=== PATIENT | male | born 1930 | race Caucasian/White ===

== ENCOUNTER 2018-05-29 17:36 | Observation (INO) ==
[2018-05-29] MEDS ORDERED: Sod Chloride 0.9% Inj 1,000 ML IV.SIG ONE (18:09)
--- NOTE | 2018-05-29 18:22 | ED ---
HPI General Chief Complaint: Syncope Stated Complaint: Syncope Time Seen by Provider: 05/29/18 17:57 Source: patient and family Mode of arrival: EMS Limitations: no limitations History of Present Illness HPI narrative: Patient is a 87 year old male who presents to the ER after he had a syncopal episode. Patient reports that he has not been feeling well all day today, reports that he was laying in bed. Patient reports that he got up to use the bathroom and ended up feeling like a bolt of a light go throughout his body - reports that he felt nauseous, threw up and then he syncopized. Patient reports that he fell onto the floor hitting his head. Patient's family witnessed this fall, he was unconscious for about 5-10 seconds. Patient reports that he feels fine at this time, patient reports no complaints. Patient does take a full dose aspirin every day. Patient reports that he does have cardiac history, he has had multiple cardiac stents. Patient reports that he does follow up with Dr. Chaudhry in the office and is scheduled for a cardiac catherization on June 05. Patient reports that he feels fine but feels like something is off. Patient with no chest pain or headache or dizziness at this time. Related Data Home Medications Medication Instructions Recorded Confirmed aspirin 81 mg PO DAILY [facility] 05/29/18 05/29/18 donepezil 10 mg PO DAILY 05/29/18 05/29/18 enalapril maleate 5 mg PO DAILY [facility] 05/29/18 05/29/18 glipizide 10 mg PO DAILY 05/29/18 05/29/18 metoprolol succinate 50 mg PO DAILY 05/29/18 05/29/18 omeprazole 20 mg PO DAILY [facility] 05/29/18 05/29/18 Allergies Allergy/AdvReac Type Severity Reaction Status Date / Time No Known Allergies Allergy Severe Uncoded 05/13/16 13:38 Review of Systems ROS: all other systems reviewed are negative [facility] Medical History Medical History Diabetes (Acute) Surgical History Surgical History H/O heart artery stent (Acute) Social History Social History Substance History: No History of Abuse Second Hand Smoke Exposure: No Smoking Status: Never smoker Tobacco Type: Cigarettes How Often Do You Have a Drink Containing Alcohol: Never Recent Travel in [facility] within the Last 8 Weeks: No Recent Out of Country Travel within the Last 8 Weeks: No Immunization History Tetanus Immunization: Unsure Exam Narrative Exam Narrative: GENERAL: mild distress SKIN: Focused skin assessment warm/dry. HEAD: Normocephalic. Patient with right sided periorbital hematoma EYES: Pupils equal and round. No scleral icterus. No injection or drainage. ENT: No nasal bleeding or discharge. Mucous membranes pink and moist. NECK: Trachea midline. No JVD. CARDIOVASCULAR: Regular rate and rhythm. No murmur appreciated. RESPIRATORY: No accessory muscle use. Clear to auscultation. Breath sounds equal bilaterally. GASTROINTESTINAL: Abdomen soft, non-tender, nondistended. Hepatic and splenic margins not palpable. MUSCULOSKELETAL: No obvious deformities. No clubbing. No cyanosis. No edema. NEUROLOGICAL: Awake and alert. No obvious cranial nerve deficits. Motor grossly within normal limits. Normal speech. PSYCHIATRIC: Appropriate mood and affect; insight and judgment normal. Course Initial Documented Vital Signs Temperature 98.8 F 05/29/18 17:57 Pulse Rate 67 05/29/18 17:57 Respiratory Rate 18 05/29/18 17:57 Blood Pressure 160/77 H 05/29/18 17:57 Pulse Oximetry 95 05/29/18 17:57 Last Documented Vital Signs Temperature 98.3 F 05/31/18 04:00 Pulse Rate 69 05/31/18 04:00 Respiratory Rate 20 05/31/18 04:00 Blood Pressure 158/84 H 05/31/18 04:00 Pulse Oximetry 95 05/31/18 04:00 Medical Decision Making [facility] Narrative Medical decision making narrative: During the course of the patients emergency department visit, the patients history, examination, and differential diagnosis were reviewed with the patient. The patient was placed on a supervisor home economics with oximetry and frequent blood pressure monitoring. The patient had an IV access obtained and blood work sent for analysis. The patient was initially provided asa cbc: wnl cmp: Sodium 140, potassium 4.5, BUN 14, creatinine 1.28, glucose 172 Troponin less than 0.02, BNP 401 CT of the head with no acute intracranial abnormalities, CT of the face with no acute facial bone fractures. Patient will be observation for syncope workup. Case was reviewed with Dr. Zimmer who accepts patient to service. Medical Screen Exam Complete: Yes Emergency Medical Condition: Yes Differential Diagnosis Differential Diagnosis: ACS, arrhythmia, electrolyte abnormality, intracranial hemorrhage, TIA, CVA Medical Records Medical records reviewed: Yes I reviewed the patient's medical records. Lab Data Lab results reviewed: Yes I reviewed the patient's lab results. Result diagrams: 05/30/18 05:27 05/30/18 05:27 Lab Results 05/29/18 05/29/18 05/29/18 Range/Units 18:14 18:14 18:14 WBC 7.2 (4.0-11.0) th/mm3 RBC 4.35 L (4.50-5.90) mil/mm3 Hgb 13.6 (13.0-17.0) gm/dL Hct 38.1 L (39.0-51.0) % MCV 87.6 (80.0-100.0) fL MCH 31.4 (27.0-34.0) pg MCHC 35.8 (32.0-36.0) % RDW 15.2 (11.6-17.2) % Plt Count 174 (150-450) th/mm3 MPV 7.9 (7.0-11.0) fL Prelim Diff (Auto) Neut % (Auto) 73.9 H (16.0-70.0) % Lymph % (Auto) 17.1 (9.0-44.0) % Gaines % (Auto) 5.3 (0.0-8.0) % Eos % (Auto) 3.1 (0.0-4.0) % Baso % (Auto) 0.6 (0.0-2.0) % Neut # (Auto) 5.3 (1.8-7.7) th/mm3 Lymph # (Auto) 1.2 (1.0-4.8) th/mm3 Gaines # (Auto) 0.4 (0.0-0.9) th/mm3 Eos # (Auto) 0.2 (0.0-0.4) th/mm3 Baso # (Auto) 0.0 (0.0-0.2) th/mm3 WBC Differential . Diff Scan Differential Comment Auto diff final PT 11.3 (9.8-11.6) sec INR 1.1 Ratio APTT 28.9 (23.4-31.7) sec Sodium 140 (136-145) meq/L Potassium 4.5 (3.5-5.1) meq/L Chloride 107 (98-107) meq/L Carbon Dioxide 26.6 (21.0-32.0) meq/L Anion Gap 6 (5-15) meq/L BUN 14 (7-18) mg/dL Creatinine 1.28 (0.60-1.30) mg/dL Estimated GFR 53 L (>89) mL/min POC Glucose (68-110) mg/dl Random Glucose 172 H (74-106) mg/dL Calcium 8.6 (8.5-10.1) mg/dL Magnesium 1.6 (1.5-2.5) mg/dL Total Bilirubin 0.7 (0.2-1.0) mg/dL AST 23 (15-37) U/L ALT 22 (12-78) U/L Alkaline Phosphatase 65 (45-117) U/L Troponin I Less than 0.02 L (0.02-0.05) ng/mL B-Natriuretic Peptide (0-100) pg/mL Total Protein 6.6 (6.4-8.2) g/dL Albumin 3.5 (3.4-5.0) g/dL 05/29/18 05/29/18 05/30/18 Range/Units 18:14 19:55 00:47 WBC (4.0-11.0) th/mm3 RBC (4.50-5.90) mil/mm3 Hgb (13.0-17.0) gm/dL Hct (39.0-51.0) % MCV (80.0-100.0) fL MCH (27.0-34.0) pg MCHC (32.0-36.0) % RDW (11.6-17.2) % Plt Count (150-450) th/mm3 MPV (7.0-11.0) fL Prelim Diff (Auto) Neut % (Auto) (16.0-70.0) % Lymph % (Auto) (9.0-44.0) % Gaines % (Auto) (0.0-8.0) % Eos % (Auto) (0.0-4.0) % Baso % (Auto) (0.0-2.0) % Neut # (Auto) (1.8-7.7) th/mm3 Lymph # (Auto) (1.0-4.8) th/mm3 Gaines # (Auto) (0.0-0.9) th/mm3 Eos # (Auto) (0.0-0.4) th/mm3 Baso # (Auto) (0.0-0.2) th/mm3 WBC Differential Diff Scan Differential Comment PT (9.8-11.6) sec INR Ratio APTT (23.4-31.7) sec Sodium (136-145) meq/L Potassium (3.5-5.1) meq/L Chloride (98-107) meq/L Carbon Dioxide (21.0-32.0) meq/L Anion Gap (5-15) meq/L BUN (7-18) mg/dL Creatinine (0.60-1.30) mg/dL Estimated GFR (>89) mL/min POC Glucose 132 H (68-110) mg/dl Random Glucose (74-106) mg/dL Calcium (8.5-10.1) mg/dL Magnesium (1.5-2.5) mg/dL Total Bilirubin (0.2-1.0) mg/dL AST (15-37) U/L ALT (12-78) U/L Alkaline Phosphatase (45-117) U/L Troponin I 0.03 (0.02-0.05) ng/mL B-Natriuretic Peptide 401 H (0-100) pg/mL Total Protein (6.4-8.2) g/dL Albumin (3.4-5.0) g/dL 05/30/18 05/30/18 05/30/18 Range/Units 05:27 05:27 08:37 WBC 5.6 (4.0-11.0) th/mm3 RBC 3.87 L (4.50-5.90) mil/mm3 Hgb 12.2 L (13.0-17.0) gm/dL Hct 33.8 L (39.0-51.0) % MCV 87.3 (80.0-100.0) fL MCH 31.5 (27.0-34.0) pg MCHC 36.1 H (32.0-36.0) % RDW 15.2 (11.6-17.2) % Plt Count 143 L (150-450) th/mm3 MPV 7.6 (7.0-11.0) fL Prelim Diff (Auto) Slide review pending Neut % (Auto) 61.8 (16.0-70.0) % Lymph % (Auto) 25.0 (9.0-44.0) % Gaines % (Auto) 7.9 (0.0-8.0) % Eos % (Auto) 4.5 H (0.0-4.0) % Baso % (Auto) 0.8 (0.0-2.0) % Neut # (Auto) 3.5 (1.8-7.7) th/mm3 Lymph # (Auto) 1.4 (1.0-4.8) th/mm3 Gaines # (Auto) 0.4 (0.0-0.9) th/mm3 Eos # (Auto) 0.3 (0.0-0.4) th/mm3 Baso # (Auto) 0.0 (0.0-0.2) th/mm3 WBC Differential . Diff Scan Auto diff confirmed Differential Comment . PT (9.8-11.6) sec INR Ratio APTT (23.4-31.7) sec Sodium 146 H (136-145) meq/L Potassium 3.7 D (3.5-5.1) meq/L Chloride 113 H (98-107) meq/L Carbon Dioxide 27.1 (21.0-32.0) meq/L Anion Gap 6 (5-15) meq/L BUN 12 (7-18) mg/dL Creatinine 1.07 (0.60-1.30) mg/dL Estimated GFR 65 L (>89) mL/min POC Glucose 116 H (68-110) mg/dl Random Glucose 91 (74-106) mg/dL Calcium 7.8 L D (8.5-10.1) mg/dL Magnesium (1.5-2.5) mg/dL Total Bilirubin 0.6 (0.2-1.0) mg/dL AST 25 (15-37) U/L ALT 18 (12-78) U/L Alkaline Phosphatase 48 (45-117) U/L Troponin I 0.02 (0.02-0.05) ng/mL B-Natriuretic Peptide (0-100) pg/mL Total Protein 5.4 L D (6.4-8.2) g/dL Albumin 2.8 L D (3.4-5.0) g/dL 05/30/18 05/30/18 05/30/18 Range/Units 11:12 13:08 17:40 WBC (4.0-11.0) th/mm3 RBC (4.50-5.90) mil/mm3 Hgb (13.0-17.0) gm/dL Hct (39.0-51.0) % MCV (80.0-100.0) fL MCH (27.0-34.0) pg MCHC (32.0-36.0) % RDW (11.6-17.2) % Plt Count (150-450) th/mm3 MPV (7.0-11.0) fL Prelim Diff (Auto) Neut % (Auto) (16.0-70.0) % Lymph % (Auto) (9.0-44.0) % Gaines % (Auto) (0.0-8.0) % Eos % (Auto) (0.0-4.0) % Baso % (Auto) (0.0-2.0) % Neut # (Auto) (1.8-7.7) th/mm3 Lymph # (Auto) (1.0-4.8) th/mm3 Gaines # (Auto) (0.0-0.9) th/mm3 Eos # (Auto) (0.0-0.4) th/mm3 Baso # (Auto) (0.0-0.2) th/mm3 WBC Differential Diff Scan Differential Comment PT (9.8-11.6) sec INR Ratio APTT (23.4-31.7) sec Sodium (136-145) meq/L Potassium (3.5-5.1) meq/L Chloride (98-107) meq/L Carbon Dioxide (21.0-32.0) meq/L Anion Gap (5-15) meq/L BUN (7-18) mg/dL Creatinine (0.60-1.30) mg/dL Estimated GFR (>89) mL/min POC Glucose 181 H 178 H 134 H (68-110) mg/dl Random Glucose (74-106) mg/dL Calcium (8.5-10.1) mg/dL Magnesium (1.5-2.5) mg/dL Total Bilirubin (0.2-1.0) mg/dL AST (15-37) U/L ALT (12-78) U/L Alkaline Phosphatase (45-117) U/L Troponin I (0.02-0.05) ng/mL B-Natriuretic Peptide (0-100) pg/mL Total Protein (6.4-8.2) g/dL Albumin (3.4-5.0) g/dL 05/30/18 Range/Units 20:38 WBC (4.0-11.0) th/mm3 RBC (4.50-5.90) mil/mm3 Hgb (13.0-17.0) gm/dL Hct (39.0-51.0) % MCV (80.0-100.0) fL MCH (27.0-34.0) pg MCHC (32.0-36.0) % RDW (11.6-17.2) % Plt Count (150-450) th/mm3 MPV (7.0-11.0) fL Prelim Diff (Auto) Neut % (Auto) (16.0-70.0) % Lymph % (Auto) (9.0-44.0) % Gaines % (Auto) (0.0-8.0) % Eos % (Auto) (0.0-4.0) % Baso % (Auto) (0.0-2.0) % Neut # (Auto) (1.8-7.7) th/mm3 Lymph # (Auto) (1.0-4.8) th/mm3 Gaines # (Auto) (0.0-0.9) th/mm3 Eos # (Auto) (0.0-0.4) th/mm3 Baso # (Auto) (0.0-0.2) th/mm3 WBC Differential Diff Scan Differential Comment PT (9.8-11.6) sec INR Ratio APTT (23.4-31.7) sec Sodium (136-145) meq/L Potassium (3.5-5.1) meq/L Chloride (98-107) meq/L Carbon Dioxide (21.0-32.0) meq/L Anion Gap (5-15) meq/L BUN (7-18) mg/dL Creatinine (0.60-1.30) mg/dL Estimated GFR (>89) mL/min POC Glucose 134 H (68-110) mg/dl Random Glucose (74-106) mg/dL Calcium (8.5-10.1) mg/dL Magnesium (1.5-2.5) mg/dL Total Bilirubin (0.2-1.0) mg/dL AST (15-37) U/L ALT (12-78) U/L Alkaline Phosphatase (45-117) U/L Troponin I (0.02-0.05) ng/mL B-Natriuretic Peptide (0-100) pg/mL Total Protein (6.4-8.2) g/dL Albumin (3.4-5.0) g/dL Imaging Data Attestation: I personally reviewed and interpreted this imaging study as follows : Radiologist's impression: Cervical Spine CT 05/29/18 18:09 CONCLUSION: 1. No acute fracture or subluxation of the cervical spine. 2. Degenerative changes as above. Chest X-Ray 05/29/18 18:09 CONCLUSION: 1. Cardiomegaly. 2. Bibasilar patchiness consistent with atelectasis and/or infiltrates. Face CT 05/29/18 18:09 CONCLUSION: 1. No acute facial bone fractures. Head CT 05/29/18 18:09 CONCLUSION: 1. No acute intracranial abnormality. . ECG Data EKG Prior to Arrival: No Attestation: I personally reviewed and interpreted this ECG as follows: Interpretation: EKG at 1806 shows normal sinus rhythm at 62 bpm, patient with a first-degree AV block. Patient with ST segment depressions in lead I, aVL, V4 to V6, these are changes when compared to EKG from October 26, 2010. Discharge Plan Discharge Disposition Patient Disposition: ED Admit(ED Internal Use Only) Discharge Condition Condition: Fair Discharge Order Discharge Orders: ED Use Only Admit Order (Routine); Ordered 05/29/18 Ordered By: Dominique Harkins Discharge Details Diagnosis: Syncope and collapse Physicians Team ED Provider: Dominique Harkins Primary Care Provider: Zenobia Todd Attending Provider: Marilee Dill Other Providers: Con Rios ; [employer] Status ED Status: Left Department Discharge Information Discharge Date/Time: 05/29/18 22:03
[2018-05-29 18:40] LABS: Baso % (Auto) 0.6 % (0.0-2.0); Eos # (Auto) 0.2 th/mm3 (0.0-0.4); Eos % (Auto) 3.1 % (0.0-4.0); Hematocrit 38.1 % (39.0-51.0); Hemoglobin 13.6 gm/dL (13.0-17.0); Lymph # (Auto) 1.2 th/mm3 (1.0-4.8); Lymph % (Auto) 17.1 % (9.0-44.0); Mean Corpuscular HGB Conc 35.8 % (32.0-36.0); Mean Corpuscular Hemoglobin 31.4 pg (27.0-34.0); Mean Corpuscular Volume 87.6 fL (80.0-100.0); Mean Platelet Volume 7.9 fL (7.0-11.0); Mono # (Auto) 0.4 th/mm3 (0.0-0.9); Mono % (Auto) 5.3 % (0.0-8.0); Neut # (Auto) 5.3 th/mm3 (1.8-7.7); Neut % (Auto) 73.9 % (16.0-70.0); Platelet Count 174 th/mm3 (150-450); Red Blood Count 4.35 mil/mm3 (4.50-5.90); Red Cell Distribution Width 15.2 % (11.6-17.2); White Blood Count 7.2 th/mm3 (4.0-11.0)
--- NOTE | 2018-05-29 18:47 | XR ---
EXAM DATE: 05/29/2018 6:44 PM EST AGE/SEX: 87 years / Male INDICATIONS: Chest pain. CLINICAL DATA: This is the patient's initial encounter. Patient reports that signs and symptoms have been present for 1 day and indicates a pain score of 0/10. MEDICAL/SURGICAL HISTORY: None. . Bilateral total shoulder replacements. COMPARISON: [facility], XR CHEST PA AND LAT, 04/05/2016. . FINDINGS: The heart is enlarged. Bibasilar patchiness is noted consistent with atelectasis and/or infiltrates. Median sternotomy wires are again noted and stable. Bilateral shoulder replacements are noted. CONCLUSION: 1. Cardiomegaly. 2. Bibasilar patchiness consistent with atelectasis and/or infiltrates. Electronically signed by: Dago Villeda MD Board Certified Radiologist 05/29/2018 6:46 PM EST
--- NOTE | 2018-05-29 18:49 | CT ---
EXAM DATE: 05/29/2018 6:45 PM EST AGE/SEX: 87 years / Male INDICATIONS: Syncopal episode. Loss of consciousness. CLINICAL DATA: This is the patient's initial encounter. Patient reports that signs and symptoms have been present for 1 day and indicates a pain score of 0/10. MEDICAL/SURGICAL HISTORY: Diabetes. . Coronary artery stent. RADIATION DOSE: 36.83 CTDI (mGy) COMPARISON: No prior exams available for comparison. TECHNIQUE: CT of the head without contrast. Using automated exposure control and adjustment of the mA and/or kV according to patient size, radiation dose was kept as low as reasonably achievable to ob tain optimal diagnostic quality images. DICOM format image data is available electronically for revi ew and comparison. FINDINGS: Cerebrum: Moderate diffuse cerebral atrophy. The ventricles are normal for degree of atrophy. No inez dence of midline shift, mass lesion, hemorrhage or acute infarction. No extraaxial fluid collections are seen. Posterior Fossa: The cerebellum and brainstem are intact. The 4th ventricle is midline. The cerebe llopontine angle is unremarkable. Extracranial: The visualized portion of the orbits is intact. Skull: The calvaria is intact. No evidence of skull fracture. CONCLUSION: 1. No acute intracranial abnormality. . Electronically signed by: Connor Martin MD Board Certified Radiologist 05/29/2018 6:47 PM VERONICA Jacobs
[2018-05-29 18:51] LABS: Alanine Aminotransferase 22 U/L (12-78); Albumin 3.5 g/dL (3.4-5.0); Anion Gap 6 meq/L (5-15); Aspartate Aminotransferase 23 U/L (15-37); Blood Urea Nitrogen 14 mg/dL (7-18); Calcium 8.6 mg/dL (8.5-10.1); Carbon Dioxide 26.6 meq/L (21.0-32.0); Chloride 107 meq/L (98-107); Glomerular Filtration Rate 53 mL/min (>89); Glucose,Random 172 mg/dL (74-106); Magnesium 1.6 mg/dL (1.5-2.5); Potassium 4.5 meq/L (3.5-5.1); Sodium 140 meq/L (136-145)
[2018-05-29 18:54] LABS: Activated Partial Thrombo Time 28.9 sec (23.4-31.7); INR 1.1 Ratio; Prothrombin Time 11.3 sec (9.8-11.6)
[2018-05-29 18:55] LABS: Alkaline Phosphatase 65 U/L (45-117); Total Protein 6.6 g/dL (6.4-8.2)
--- NOTE | 2018-05-29 18:59 | CT ---
EXAM DATE: 05/29/2018 6:54 PM EST AGE/SEX: 87 years / Male INDICATIONS: Syncopal episode. Head, neck, and face injury. Swollen right eye. CLINICAL DATA: This is the patient's initial encounter. Patient reports that signs and symptoms have been present for 1 day and indicates a pain score of 0/10. MEDICAL/SURGICAL HISTORY: Diabetes. . Coronary artery stent. RADIATION DOSE: 62.55 CTDI (mGy) COMPARISON: No prior exams available for comparison. TECHNIQUE: Contiguous images in the axial and coronal planes were obtained using helical multirow de tector technique. Using automated exposure control and adjustment of the mA and/or kV according to p atient size, radiation dose was kept as low as reasonably achievable to obtain optimal diagnostic amy lity images. DICOM format image data is available electronically for review and comparison. FINDINGS: Orbits: The orbital and infraorbital osseous structures are intact. The retroconal structures have a normal configuration. No radiopaque foreign bodies are seen. Nasal Bone: The nasal bone and maxillary spine are intact. Zygomatic Arches: Symmetric without evidence of fracture. Sinuses: The maxillary, ethmoid, and frontal sinuses are intact. No air-fluid levels seen. Nasal Cavity: The nasal septum is intact and midline. The lacrimal ducts are intact. Soft Tissues: No radiopaque foreign bodies seen. Right periorbital soft tissue swelling. Intracranial: No intracranial air seen. Cribriform Plate: Grossly intact. CONCLUSION: 1. No acute facial bone fractures. Electronically signed by: Connor Martin MD Board Certified Radiologist 05/29/2018 6:58 PM VERONICA Jacobs
--- NOTE | 2018-05-29 19:08 | CT ---
EXAM DATE: 05/29/2018 7:02 PM EST AGE/SEX: 87 years / Male INDICATIONS: Syncopal episode. Fall. Head and neck injury. CLINICAL DATA: This is the patient's initial encounter. Patient reports that signs and symptoms have been present for 1 day and indicates a pain score of 0/10. MEDICAL/SURGICAL HISTORY: Diabetes. . Coronary artery stent. RADIATION DOSE: 23.03 CTDI (mGy) COMPARISON: No prior exams available for comparison. TECHNIQUE: Contiguous axial images were obtained using helical multirow detector technique. The vol umetric data was post-processed with multiplanar reconstruction in oblique axial, sagittal, and coron al planes. Using automated exposure control and adjustment of the mA and/or kV according to patient s ize, radiation dose was kept as low as reasonably achievable to obtain optimal diagnostic quality brittany ges. DICOM format image data is available electronically for review and comparison. FINDINGS: No subluxation seen of the cervical spine. No cortical break or trabecular disruption demonstrated. V ertebral bodies have normal height. 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 There is severe left foraminal stenosis and mild spinal stenosis. Small, broad posterior disc osteophyte complexes and bilateral uncovertebral and facet osteoarthritis seen at C4/C5 and C5/C6. There is mild bilateral foraminal stenosis at C4/5 and moderate bilateral f oraminal stenosis at C5/C6. Broad right paracentral/foraminal disc protrusion and mild bilateral uncovertebral and facet osteoart hritis present at C6/C7. There is moderate right foraminal stenosis. CONCLUSION: 1. No acute fracture or subluxation of the cervical spine. 2. Degenerative changes as above. Electronically signed by: Connor Sanford MD Board Certified Radiologist 05/29/2018 7:06 PM EST
[2018-05-29] MEDS ORDERED: Dextrose 50% in Water 50 ML Vial IV.PUSH PRN (19:45)
[2018-05-29] MEDS ORDERED: Bisacodyl 10 MG Supp RECTAL PRN (19:45)
[2018-05-29] MEDS ORDERED: Acetaminophen 325 MG Tablet PO PRN (19:45)
[2018-05-29] MEDS: Sod Chloride 0.9% Inj 1,000 ML IV.CONT SCH (19:53)
[2018-05-29] MEDS ORDERED: Aspirin 325 MG Tablet PO ONE (20:10)
--- NOTE | 2018-05-29 20:35 | P.HPIM ---
History of Present Illness Primary Care Physician: Zenobia Todd MD History of Present Illness: CXR bibasilar patchiness consistent with atelectasis or infiltrates.This is an 87-year-old male with a PMH of HTN, CAD s/ p CABG x6 and DM who was brought to the ER by EMS after syncopal event. Pt states he's been having c/o chest pain for approx 1mo, follows w/ Dr. Chaudhry, was seen in office on Friday and scheduled for Cath on 06/05/18. Notes ongoing episodes of chest pain, substernal, 5/10, non-radiating. Today, w/ c/o nausea/ vomiting and "gas", states symptoms improved after vomiting. and daughter note decreased PO intake x1 month. Today, states he was walking back to the living room from the kitchen when she heard loud thud and found him on the floor. Pt denies dizziness/lightheadedness or chest pain prior to syncope. + facial trauma. On arrival, BP 160/77, HR 67, O2 sat 95% on RA, Afebrile. CBC unremarkable. INR 1.1. Chemistry unremarkable. Troponin negative. CT Head negative. CT Face no fractures. CT C-spine no acute fracture. Remains chest pain free at this time. Diagnosis (1) Syncope: (2) Fall: (3) DM (diabetes mellitus): (4) Chest pain: Review of Systems PAST FAMILY HISTORY: Reviewed. No h/o DM or CAD Review of Systems: all other systems reviewed are negative [facility] Medical History Medical History Diabetes (Acute) Surgical History Surgical History H/O heart artery stent (Acute) Social History Social History Substance History: No History of Abuse Second Hand Smoke Exposure: No Smoking Status: Never smoker Tobacco Type: Cigarettes How Often Do You Have a Drink Containing Alcohol: Monthly or less Recent Travel in [facility] within the Last 8 Weeks: No Recent Out of Country Travel within the Last 8 Weeks: No Immunization History Tetanus Immunization: Unsure Medications and Allergies Allergies Allergy/AdvReac Type Severity Reaction Status Date / Time No Known Allergies Allergy Severe Uncoded 05/13/16 13:38 Home Medications Medication Instructions Recorded Confirmed Type aspirin 81 mg PO DAILY [facility] 05/29/18 05/29/18 History donepezil 10 mg PO DAILY 05/29/18 05/29/18 History enalapril maleate 5 mg PO DAILY [facility] 05/29/18 05/29/18 History glipizide 10 mg PO DAILY 05/29/18 05/29/18 History metoprolol succinate 50 mg PO DAILY 05/29/18 05/29/18 History omeprazole 20 mg PO DAILY [facility] 05/29/18 05/29/18 History Active Medications: Active Medications Acetaminophen (Tylenol) 650 mg PO Q4H PRN PRN Reason: Temp > 100.4 Al Hydroxide/Mg Hydroxide (Milk Of Magnesia Liq) 30 ml PO Q12H PRN PRN Reason: Mild Constipation Aspirin (Aspirin Chew) 81 mg PO DAILY [facility] Bisacodyl (Dulcolax Supp) 10 mg RECTAL DAILY PRN PRN Reason: SEVERE CONSITIPATION Dextrose (D50w Vial) 50 ml IV.PUSH UNSCH PRN PRN Reason: PER HYPOGLYCEMIA PROTOCOL Enalapril Maleate (Vasotec) 5 mg PO DAILY [facility] Glucagon (Glucagon Inj) 1 mg OTHER PRN PRN PRN Reason: for Hypoglycemia Protocol Sodium Chloride (Ns Inj) 1,000 mls @ 100 mls/hr IV.CONT .Q10H [facility] Last Admin: 05/29/18 19:53 Dose: 100 mls/hr Insulin Aspart (Novolog Insulin Correctional Sugar Inj) 0 unit SQ ACHS [facility]; Protocol Lactulose (Lactulose Liq) 30 ml PO DAILY PRN PRN Reason: SEVERE CONSITIPATION Non-Formulary Medication (Donepezil [Donepezil]) 10 mg PO DAILY [facility] Non-Formulary Medication (Metoprolol Succinate [Metoprolol Succinate]) 50 mg PO DAILY [facility] Non-Formulary Medication (Omeprazole [Omeprazole]) 20 mg PO DAILY [facility] Ondansetron HCl (Zofran Inj) 4 mg IV.PUSH Q6H PRN PRN Reason: NAUSEA OR VOMITING Senna/Docusate Sodium (Chelita-Colace) 1 tab PO BID [facility] Sennosides (Senokot) 17.2 mg PO Q12H PRN PRN Reason: Moderate Constipation Sodium Chloride (Ns Flush) 2 ml IV.FLUSH PRN PRN PRN Reason: FLUSH AFTER USING IV ACCESS Sodium Chloride (Ns Flush) 2 ml IV.FLUSH BID [facility] Sodium Chloride (Ns Flush) 2 ml IV.FLUSH PRN PRN PRN Reason: FLUSH AFTER USING IV ACCESS Physical Exam Vital signs: Last Vital Signs Temp 98.8 F 05/29/18 17:57 Pulse 63 05/29/18 19:03 Resp 18 05/29/18 19:03 BP 162/72 H 05/29/18 19:03 Pulse Ox 98 05/29/18 19:28 Intake & Output 05/27/18 05/28/18 05/29/18 05/30/18 06:59 06:59 06:59 06:59 Intake Total 1000 / 1000 Balance 1000 / 1000 Weight 90.718 kg Narrative: PE: GENERAL: Very pleasant elderly male in no acute distress. SKIN: Focused skin assessment warm and dry. HEENT: PERRLA, EOMI. No scleral icterus or conjunctival pallor. No lid lag or facial droop. +right eye ecchymosis/mild swelling. CARDIOVASCULAR: Regular rate and rhythm. No obvious murmurs to auscultation. No chest tenderness to palpation. RESPIRATORY: No obvious rhonchi or wheezing. Clear to auscultation. Breath sounds equal bilaterally. GASTROINTESTINAL: Abdomen soft, non-tender, nondistended. BS normal. MUSCULOSKELETAL: Extremities without clubbing, cyanosis, or edema. No obvious deformities. NEUROLOGICAL: Awake, alert and oriented x4. No focal neurologic deficits. Moving both upper and lower extremities spontaneously. PSYCHIATRIC: Appropriate mood and affect. Insight and judgment normal. Results Labs CBC & Chem 7: 05/29/18 18:14 05/29/18 18:14 Imaging Impressions Cervical Spine CT 05/29/18 18:09 CONCLUSION: 1. No acute fracture or subluxation of the cervical spine. 2. Degenerative changes as above. Chest X-Ray 05/29/18 18:09 CONCLUSION: 1. Cardiomegaly. 2. Bibasilar patchiness consistent with atelectasis and/or infiltrates. Face CT 05/29/18 18:09 CONCLUSION: 1. No acute facial bone fractures. Head CT 05/29/18 18:09 CONCLUSION: 1. No acute intracranial abnormality. . Caprini VTE Risk Assessment Caprini VTE Risk Assessment: No/Low Risk (score <= 1) Caprini Risk Assessment Model: Point Value = 1 Point Value = 2 Point Value = 3 Point Value = 5 Age 41-60 Minor surgery BMI > 25 kg/m2 Swollen legs Varicose veins or History of unexplained or recurrent spontaneous Oral contraceptives or hormone replacement Sepsis (< 1 month) Serious lung disease, including pneumonia (< 1 month) Abnormal pulmonary function Acute myocardial infarction Congestive heart failure (< 1 month) History of inflammatory bowel disease Medical patient at bed rest Age 61-74 Arthroscopic surgery Major open surgery (> 45 min) Laparoscopic surgery (> 45 min) Malignancy Confined to bed (> 72 hours) Immobilizing plaster cast Central venous access Age >= 75 History of VTE Family history of VTE Factor V Leiden Prothrombin [id number] Lupus anticoagulant Anticardiolipin antibodies Elevated serum homocysteine Heparin-induced thrombocytopenia Other congenital or acquired thrombophilia Stroke (< 1 month) Elective arthroplasty Hip, pelvis, or leg fracture Acute spinal cord injury (< 1 month) Prophylaxis Regimen: Total Risk Factor Score Risk Level Prophylaxis Regimen 0-1 Low Early ambulation 2 Moderate Order ONE of the following: *Sequential Compression Device (SCD) *Heparin 5000 units SQ BID 3-4 Higher Order ONE of the following medications: *Heparin 5000 units SQ TID *Enoxaparin/Lovenox 40 mg SQ daily (WT < 150 kg, CrCl > 30 mL/min) *Enoxaparin/Lovenox 30 mg SQ daily (WT < 150 kg, CrCl > 10-29 mL/min) *Enoxaparin/Lovenox 30 mg SQ BID (WT < 150 kg, CrCl > 30 mL/min) AND/OR *Sequential Compression Device (SCD) 5 or more Highest Order ONE of the following medications: *Heparin 5000 units SQ TID (Preferred with Epidurals) *Enoxaparin/Lovenox 40 mg SQ daily (WT < 150 kg, CrCl > 30 mL/min) *Enoxaparin/Lovenox 30 mg SQ daily (WT < 150 kg, CrCl > 10-29 mL/min) *Enoxaparin/Lovenox 30 mg SQ BID (WT < 150 kg, CrCl > 30 mL/min) AND *Sequential Compression Device (SCD) Assessment and Plan (1) Syncope: Code(s): R55 - Syncope and collapse Status: Acute (2) Fall: Code(s): W19.XXXA - Unspecified fall, initial encounter Status: Acute (3) DM (diabetes mellitus): Code(s): E11.9 - Type 2 diabetes mellitus without complications Status: Acute (4) Chest pain: Code(s): R07.9 - Chest pain, unspecified Status: Acute Plan A/P: 1. Syncope: acute syncopal event, likely vasovagal, precipitated by dehydration from decreased PO intake x1 month. Will admit for further observation, telemetry, IVF for hydration, monitor I/O, check Echo to eval for valvular abnormality/cardiomyopathy. PT as needed. 2. Fall: +facial trauma, secondary to above, CT Head/Face/C-Spine w/ no acute findings. Analgesics/antiemetics as needed. 3. Chest Pain: c/o chest pain x1 month, follows w/ Dr. Chaudhry, scheduled for cath 06/05/18, initial trop negative, will check serial cardiac enzymes for trend, consult Cardiology, Morphine/NTG prn if needed. CXR w/ bibasilar atelectasis/infiltrate, afebrile, no leukocytosis, no symptoms of infection, will hold antibiotics. 4. DM: Sliding scale w/ Accu-Checks 5. DVT Prophylaxis: SCD/Teds 6. Social work for d/c planning as needed. 7. Case discussed w/ ER physician at length, labs/records/imaging reviewed by me.
[2018-05-29] MEDS: Insulin NovoLOG Aspart Correctional Sugar Inj SQ SCH (21:20)
[2018-05-29] MEDS: Senna/Docusate Sodium 8.6/50 MG Tablet PO SCH (21:38)
[2018-05-30] MEDS: Sod Chloride 0.9% Inj 1,000 ML IV.CONT SCH ×2 (05:51→16:14)
[2018-05-30 06:34] LABS: Baso % (Auto) 0.8 % (0.0-2.0); Eos # (Auto) 0.3 th/mm3 (0.0-0.4); Eos % (Auto) 4.5 % (0.0-4.0); Hematocrit 33.8 % (39.0-51.0); Hemoglobin 12.2 gm/dL (13.0-17.0); Lymph # (Auto) 1.4 th/mm3 (1.0-4.8); Mean Corpuscular Hemoglobin 31.5 pg (27.0-34.0); Mean Corpuscular Volume 87.3 fL (80.0-100.0); Mean Platelet Volume 7.6 fL (7.0-11.0); Mono # (Auto) 0.4 th/mm3 (0.0-0.9); Mono % (Auto) 7.9 % (0.0-8.0); Neut # (Auto) 3.5 th/mm3 (1.8-7.7); Neut % (Auto) 61.8 % (16.0-70.0); Platelet Count 143 th/mm3 (150-450); Red Blood Count 3.87 mil/mm3 (4.50-5.90); Red Cell Distribution Width 15.2 % (11.6-17.2); White Blood Count 5.6 th/mm3 (4.0-11.0)
[2018-05-30 06:43] LABS: Mean Corpuscular HGB Conc 36.1 % (32.0-36.0)
[2018-05-30 07:01] LABS: Alanine Aminotransferase 18 U/L (12-78); Albumin 2.8 g/dL (3.4-5.0); Alkaline Phosphatase 48 U/L (45-117); Anion Gap 6 meq/L (5-15); Blood Urea Nitrogen 12 mg/dL (7-18); Calcium 7.8 mg/dL (8.5-10.1); Carbon Dioxide 27.1 meq/L (21.0-32.0); Chloride 113 meq/L (98-107); Glomerular Filtration Rate 65 mL/min (>89); Glucose,Random 91 mg/dL (74-106); Sodium 146 meq/L (136-145); Total Protein 5.4 g/dL (6.4-8.2); Troponin I 0.02 ng/mL (0.02-0.05)
[2018-05-30 07:03] LABS: Aspartate Aminotransferase 25 U/L (15-37); Potassium 3.7 meq/L (3.5-5.1)
[2018-05-30] MEDS: Senna/Docusate Sodium 8.6/50 MG Tablet PO SCH ×2 (08:31→20:40)
[2018-05-30] MEDS: Pantoprazole Sodium 20 MG DR Tablet PO SCH (08:31)
[2018-05-30] MEDS: Insulin NovoLOG Aspart Correctional Sugar Inj SQ SCH ×4 (08:42→22:45)
[2018-05-30] MEDS ORDERED: Morphine Sulfate Inj 2 MG/ML Vial IV.PUSH PRN (08:46)
--- NOTE | 2018-05-30 11:56 | P.PNIM ---
Subjective Interval history: 87-year-old gentleman with known history of coronary artery disease admitted after syncopal episode, has been having more frequent exertional anginal type symptoms and scheduled for outpatient June 05 with his manufacturing operations manager, initial workup in the emergency room was negative for acute ischemia or elevated troponins. Patient seen and examined, states he is feeling fine, no further episodes, no headaches, no shortness of breath or chest pain Physical Exam Vital signs: Last Vital Signs Temp 97.8 F 05/30/18 08:00 Pulse 72 05/30/18 08:00 Resp 15 05/30/18 08:00 BP 123/66 05/30/18 08:00 Pulse Ox 93 L 05/30/18 08:00 Intake & Output 05/28/18 05/29/18 05/30/18 05/31/18 06:59 06:59 06:59 06:59 Intake Total 2240 / 2240 Balance 2240 / 2240 Weight 90.718 kg Well-developed well-nourished obese 87-year-old gentleman Awake alert oriented no acute distress Heart S1-S2 regular 2/6 MR Lungs clear bilateral no wheeze no rhonchi Abdomen obese soft nondistended positive bowel sounds Extremities no clubbing cyanosis no edema Results Labs CBC & Chem 7: 05/30/18 05:27 05/30/18 05:27 Imaging Imaging: Impressions Cervical Spine CT 05/29/18 18:09 CONCLUSION: 1. No acute fracture or subluxation of the cervical spine. 2. Degenerative changes as above. Chest X-Ray 05/29/18 18:09 CONCLUSION: 1. Cardiomegaly. 2. Bibasilar patchiness consistent with atelectasis and/or infiltrates. Face CT 05/29/18 18:09 CONCLUSION: 1. No acute facial bone fractures. Head CT 05/29/18 18:09 CONCLUSION: 1. No acute intracranial abnormality. . Assessment and Plan (1) Syncope: Code(s): R55 - Syncope and collapse Status: Acute (2) Fall: Code(s): W19.XXXA - Unspecified fall, initial encounter Status: Acute (3) DM (diabetes mellitus): Code(s): E11.9 - Type 2 diabetes mellitus without complications Status: Acute (4) Chest pain: Code(s): R07.9 - Chest pain, unspecified Status: Acute Plan Syncopeuncertain etiology patient has been having more frequent exertional anginal episodes, patient will be admitted to telemetry serial cardiac enzymes no elevation of troponin, no acute ischemia on EKGs, follow-up with cardiology consultation CADwith accelerated anginaplan for cardiac catheterization per cardiology clinically stable, no active symptoms currently HTNcontinue blood pressure control DYSLIPIDEMIA continue statin as tolerated follow-up fasting lipids NIDDM [id number] fair control continue insulin sliding scale diabetic diet GERD continue omeprazole ALZHEIMER'S DEMENTIA early continued donezepil OBESITY BMI 32 outpatient follow-up MILD PROTEIN CALORIE MALNUTRITION, albumin 2.8continue nutritional support DEHYDRATION with hypernatremia and hyperchloremia ATELECTASIS, bilateral, per chest x-ray continue incentive spirometer doubt infiltrates or pneumonia, monitor for infection DVT prophylaxis subcu Lovenox Discharge planning pending cardiology consultation and recommendations likely home 1-2 days Progress Note: Quality VTE Deep Vein Thrombosis/Pulmonary Embolism Present on Admission: No
[2018-05-30] MEDS: Enoxaparin Inj 40 MG/0.4 ML Syringe SQ SCH (17:45)
--- NOTE | 2018-05-31 01:10 | ECG ---
Date Performed: 05/29/2018 Time Performed: 18:06:28 PTAGE: 87 years EKG: Sinus rhythm WITH FIRST DEGREE AV BLOCK RIGHT BUNDLE BRANCH BLOCK INFERIOR MYOCARDIAL INFARCTION ABNORMAL ECG INT ERPRETATION BASED ON A DEFAULT AGE OF 40 YEARS Since the PREVIOUS TRACING , no significant change noted DOCTOR: Con Rios Interpretating Date/Time 05/31/2018 01:09:43
--- NOTE | 2018-05-31 01:13 | MB ---
cc: Con Rios DO DATE: 05/30/2018 REASON FOR CONSULTATION: Syncope. HISTORY OF PRESENT ILLNESS: Campbell Saba is a pleasant 87-year-old male who sees my partner, Dr. Chaudhry, in the office and presented to [facility] after a syncopal episode. Apparently, for the past month, he has had very little to eat. He was complaining of nausea, vomiting and gas pains. He was walking from the kitchen to the living room when the heard a loud thud and he was found on the floor. He then sat up and vomited. He denies dizziness, lightheadedness or chest pain prior to the syncopal episode. He had no loss of consciousness. Apparently, he has been having chest pain for the past month or so and Dr. Chaudhry had planned to have him scheduled for a cardiac catheterization on 06/05/2018. PAST MEDICAL HISTORY: 1. Alzheimer disease. 2. Chronic kidney disease. 3. Coronary artery disease. 4. Diabetes. 5. Hypertension. 6. Hyperlipidemia. PAST SURGICAL HISTORY: 1. CABG x 2 separate procedures (1989 and redo in 2004 with the redo consisting of a saphenous vein graft to distal circumflex, saphenous vein graft to obtuse marginal). 2. Cardiac catheterization (09/13/2004): Left main mild luminal irregularities. LAD is diffusely diseased, up to 60% in the proximal and 90% throughout the mid. Left circumflex it is totally occluded proximally. RCA is totally occluded at its origin. Vein graft to the RCA is known to be occluded. Vein graft to distal left circumflex is widely patent. This supplies collaterals to the distal RCA. Vein graft to the OM is a small graft to a small vessel. RIOS to LAD is widely patent. 3. Cholecystectomy. 4. Knee surgery. 5. Partial colectomy. 6. Shoulder repair. ALLERGIES: NO KNOWN DRUG ALLERGIES. MEDICATIONS: 1. Donepezil 10 mg daily. 2. Toprol-XL 50 mg daily. 3. Omeprazole 20 mg daily. 4. Glipizide 10 mg daily. 5. Enalapril 5 mg daily. 6. Aspirin 81 mg daily. FAMILY HISTORY: Denies premature coronary artery disease or sudden cardiac within the family. SOCIAL HISTORY: Denies tobacco, alcohol or drug abuse. REVIEW OF SYSTEMS: Fourteen systems were reviewed including osteopathic. Pertinent positives and negatives above, otherwise negative. PHYSICAL EXAMINATION: VITAL SIGNS: Temperature 97.6, heart rate 51, blood pressure 157/70, respirations 16, pulse oximetry 96% on room air. GENERAL: The patient appears well, in no acute distress. Alert, awake and oriented x 3. HEENT: Extraocular muscles intact. Ecchymosis noted over the right eye. Mucous membranes moist. NECK: Supple. No JVD at 45 degrees. No carotid bruits heard bilaterally. Carotid upstroke is brisk in nature. HEART: Regular rate and rhythm. Positive first and second heart sounds with a I/ crescendo-decrescendo murmur to the right sternal border. LUNGS: Clear to auscultation bilaterally. No wheezes, rales or rhonchi. ABDOMEN: Soft, nontender, nondistended. No organomegaly noted. EXTREMITIES: Show no clubbing, cyanosis or edema. Femoral and distal pulses are intact bilaterally. NEUROLOGIC: No focal deficits. SKIN: Warm, dry and intact. OSTEOPATHIC: No kyphoscoliosis, lordosis or paraspinal tender points. LABORATORY DATA: Hemoglobin 12.2, hematocrit 33.8, platelets 143. Potassium 3.7, BUN 12, creatinine 1.07. Troponin negative x 3. Electrocardiogram (05/29/2018 at 1806 hours): Sinus rhythm, first-degree AV block, right bundle branch block, old inferior myocardial infarction. IMPRESSION: 1. Syncope. 2. Chest pain. 3. Coronary artery disease with a history of 2 separate coronary artery bypass grafting. 4. Hypertension. 5. Hyperlipidemia. 6. Diabetes. 7. Nausea with emesis. 8. Poor oral intake. RECOMMENDATIONS: 1. Mr. Saba presented with a syncopal episode and it is difficult to discern what exactly caused this. He denies chest pain, shortness of breath or palpitations before the event. 2. He has had decreased oral intake over the past month and this could lead to dehydration as well as pooling of the blood in the lower extremities, which led to the actual event, although he does not feel that he was lightheaded before it. 3. He also ended up vomiting right after the episode and so the sensation of vomiting could have led to a vasovagal episode. 4. He has had chest pain coming on during the past month and is scheduled for a cardiac catheterization on 06/05/2018. Currently, his troponins have been negative x 3 and his EKG shows no acute changes. I will discuss further with Dr. Chaudhry about the timing of the procedure. 5. Check a 2D echo to look at his overall left ventricular function, cardiac structure and possible valvulopathies. 6. He will be watched on telemetry while here to look for any type of arrhythmia. 7. Further recommendations will be made based on the hospital course. Thank you for allowing me to see Campbell Saba. If there are any questions, please do not hesitate to call. DO KLARISSA Becker/shabana , 12:08 AM , 12:21 AM
--- NOTE | 2018-05-31 01:44 | ECHRPT ---
Indication: syncope CONCLUSIONS Very technically difficult study. Mild concentric left ventricular hypertrophy. The left ventricular systolic function is mildly reduced with an estimated ejection fraction in the range of 45- 50%. There is global left ventricular dysfunction. Mild mitral valve regurgitation. There is mild tricuspid valve regurgitation. BP: / HR: Rhythm: MEASUREMENTS (Male / Female) Normal Values Technical Quality:Very technically difficult study 2D ECHO LV Diastolic Diameter PLAX 4.9 cm 4.2 - 5.9 / 3.9 - 5.3 cm LV Systolic Diameter PLAX 3.8 cm IVS Diastolic Thickness 1.8 cm 0.6 - 1.0 / 0.6 - 0.9 cm LVPW Diastolic Thickness 1.5 cm 0.6 - 1.0 / 0.6 - 0.9 cm LV Relative Wall Thickness 0.7 RV Internal Dim ED PLAX 2.3 cm LVOT Diameter 2.1 cm Aortic Root Diameter 2.9 cm LA Systolic Diameter LX 4.4 cm 3.0 - 4.0 / 2.7 - 3.8 cm M-MODE Aortic Root Diameter MM 4.2 cm LA Systolic Diameter MM 5.3 cm LA Ao Ratio MM 1.3 AV Cusp Separation MM 0.9 cm DOPPLER AV Peak Velocity 224.7 cm/s AV Peak Gradient 20.2 mmHg AV Mean Gradient 12.0 mmHg AV Velocity Time Integral 54.2 cm LVOT Peak Velocity 169.0 cm/s LVOT Peak Gradient 11.4 mmHg LVOT Velocity Time Integral 36.6 cm AV Area Cont Eq vti 2.3 cm AV Area Cont Eq pk 2.6 cm Mitral E Point Velocity 57.8 cm/s Mitral A Point Velocity 53.3 cm/s Mitral E to A Ratio 1.1 LV E' Lateral Velocity 5.8 cm/s Mitral E to LV E' Lateral Ratio 10.1 LV E' Septal Velocity 3.4 cm/s Mitral E to LV E' Septal Ratio 17.0 TR Peak Velocity 284.0 cm/s TR Peak Gradient 32.3 mmHg Right Atrial Pressure 10.0 mmHg Pulmonary Artery Systolic Pressu 42.3 mmHg Right Ventricular Systolic Press 42.3 mmHg PV Peak Velocity 82.8 cm/s PV Peak Gradient 2.7 mmHg FINDINGS LEFT VENTRICLE Normal left ventricular size. Mild concentric left ventricular hypertrophy. The left ventricular systolic function is mildly reduced with an estimated ejection fraction in the range of 45- 50%. There is global left ventricular dysfunction. RIGHT VENTRICLE The right ventricle was not well visualized. LEFT ATRIUM The left atrial size is [id number] dilated. RIGHT ATRIUM The right atrial size is normal. ATRIAL SEPTUM Normal atrial septal thickness. MITRAL VALVE Moderate mitral annular calcification. Structurally normal mitral valve. Mild mitral valve regurgitation. No mitral valve stenosis. AORTIC VALVE Diffuse calcification of the aortic valve. Probable trileaflet No aortic valve regurgitation. No aortic valve stenosis. TRICUSPID VALVE Structurally normal tricuspid valve. The estimated pulmonary arterial pressure is 42. mmHg. There is mild tricuspid valve regurgitation. PULMONARY VALVE The pulmonary valve is not well visualized. Con Rios DO (Electronically Signed) Final Date:31 May 2018 01:43
[2018-05-31] MEDS: Sod Chloride 0.9% Inj 1,000 ML IV.CONT SCH ×3 (02:10→21:50)
[2018-05-31 06:26] LABS: Calcium 7.9 mg/dL (8.5-10.1); Carbon Dioxide 25.8 meq/L (21.0-32.0); Potassium 3.8 meq/L (3.5-5.1)
[2018-05-31 06:29] LABS: Chol/HDL Ratio 7.38 Ratio; HDL Cholesterol 24.1 mg/dL (40.0-60.0)
[2018-05-31] MEDS: Insulin NovoLOG Aspart Correctional Sugar Inj SQ SCH ×5 (09:22→20:00)
[2018-05-31] MEDS: Pantoprazole Sodium 20 MG DR Tablet PO SCH (09:33)
[2018-05-31] MEDS: Enoxaparin Inj 40 MG/0.4 ML Syringe SQ SCH (09:33)
[2018-05-31] MEDS: Senna/Docusate Sodium 8.6/50 MG Tablet PO SCH ×3 (09:34→21:50)
--- NOTE | 2018-05-31 12:02 | P.PNIM ---
Subjective Interval history: 87-year-old gentleman with coronary artery disease admitted after syncopal episode. Cardiac enzymes negative to date, no events on telemetry, echocardiogram with mild reduced EF 45-50%. Patient seen and examined, feeling a little better, denies shortness of breath or chest pain, no headache, thinks this was related to his stomach problems. Physical Exam Vital signs: Last Vital Signs Temp 97.7 F 05/31/18 08:00 Pulse 59 L 05/31/18 08:00 Resp 16 05/31/18 08:00 BP 148/72 H 05/31/18 08:00 Pulse Ox 96 05/31/18 08:00 Intake & Output 05/29/18 05/30/18 05/31/18 06/01/18 06:59 06:59 06:59 06:59 Intake Total 2240 / 2240 2865 / 2865 Output Total 2453 / 2453 Balance 2240 / 2240 412 / 412 Weight 90.718 kg 91 kg Well-developed well-nourished pleasant 87-year-old gentleman Awake alert oriented no acute distress Heart S1-S2 regular heart sounds distant Lungs clear bilateral decreased breath sounds Abdomen soft obese nontender positive bowel sounds Extremities no clubbing cyanosis no calf tenderness Results Labs CBC & Chem 7: 05/30/18 05:27 05/31/18 05:17 Imaging Imaging: Echocardiogram: CONCLUSIONS Very technically difficult study. Mild concentric left ventricular hypertrophy. The left ventricular systolic function is mildly reduced with an estimated ejection fraction in the range of 45-50%. There is global left ventricular dysfunction. Mild mitral valve regurgitation. There is mild tricuspid valve regurgitation. Assessment and Plan (1) Syncope: Code(s): R55 - Syncope and collapse Status: Acute (2) Fall: Code(s): W19.XXXA - Unspecified fall, initial encounter Status: Acute (3) DM (diabetes mellitus): Code(s): E11.9 - Type 2 diabetes mellitus without complications Status: Acute (4) Chest pain: Code(s): R07.9 - Chest pain, unspecified Status: Acute Plan SYNCOPE likely vasovagal, no elevation of troponin, no acute ischemia on EKGs, echocardiogram with mild LV dysfunction, mild MR TR, LVH, CADwith angina plan for cardiac catheterization per cardiology 06/05 clinically stable, no active symptoms currently HTNcontinue blood pressure control DYSLIPIDEMIA continue statin as tolerated follow-up fasting lipids NIDDM [id number] fair control continue insulin sliding scale diabetic diet GERD continue omeprazole, will follow up with GI after cardiology workup is complete as outpatient ALZHEIMER'S DEMENTIA early continued donezepil OBESITY BMI 32 outpatient follow-up when stable MILD PROTEIN CALORIE MALNUTRITION, albumin 2.8continue nutritional support DEHYDRATION with hypernatremia and hyperchloremia resolved ATELECTASIS, bilateral, per chest x-ray continue incentive spirometer doubt infiltrates or pneumonia, no evidence infection DVT prophylaxis subcu Lovenox Discharge planning pending cardiology recommendations, possible discharge home later today unless planned for procedure this hospitalization. Progress Note: Quality VTE Deep Vein Thrombosis/Pulmonary Embolism Present on Admission: No
--- NOTE | 2018-05-31 15:41 | P.PNCA ---
Subjective Interval history: Feels well this morning At 7am had a 7 second pause, unsure if symptomatic or sleeping at the time Medications and Allergies Active Medications: Active Medications Acetaminophen (Tylenol) 650 mg PO Q4H PRN PRN Reason: Temp > 100.4 Last Admin: 05/30/18 20:39 Dose: 650 mg Al Hydroxide/Mg Hydroxide (Milk Of Magnesia Liq) 30 ml PO Q12H PRN PRN Reason: Mild Constipation Aspirin (Aspirin Chew) 81 mg PO DAILY [facility] Last Admin: 05/31/18 09:31 Dose: 81 mg Bisacodyl (Dulcolax Supp) 10 mg RECTAL DAILY PRN PRN Reason: SEVERE CONSITIPATION Dextrose (D50w Vial) 50 ml IV.PUSH UNSCH PRN PRN Reason: PER HYPOGLYCEMIA PROTOCOL Diphenhydramine HCl (Benadryl) 50 mg PO HS PRN PRN Reason: INSOMNIA Donepezil HCl (Aricept) 10 mg PO DAILY [facility] Last Admin: 05/31/18 09:33 Dose: 10 mg Enalapril Maleate (Vasotec) 5 mg PO DAILY [facility] Last Admin: 05/31/18 09:31 Dose: 5 mg Enoxaparin Sodium (Lovenox Inj) 40 mg SQ DAILY [facility] Last Admin: 05/31/18 09:33 Dose: 40 mg Glucagon (Glucagon Inj) 1 mg OTHER PRN PRN PRN Reason: for Hypoglycemia Protocol Sodium Chloride (Ns Inj) 1,000 mls @ 100 mls/hr IV.CONT .Q10H [facility] Last Admin: 05/31/18 13:14 Dose: 100 mls/hr Insulin Aspart (Novolog Insulin Correctional Sugar Inj) 0 unit SQ ACHS [facility]; Protocol Last Admin: 05/31/18 13:50 Dose: 1 unit Lactulose (Lactulose Liq) 30 ml PO DAILY PRN PRN Reason: SEVERE CONSITIPATION Metoprolol Succinate (Toprol Xl) 50 mg PO DAILY [facility] Last Admin: 05/31/18 09:34 Dose: Not Given Morphine Sulfate (Morphine Inj) 2 mg IV.PUSH Q4H PRN PRN Reason: PAIN SCALE 6 TO 10 Ondansetron HCl (Zofran Inj) 4 mg IV.PUSH Q6H PRN PRN Reason: NAUSEA OR VOMITING Last Admin: 05/30/18 12:08 Dose: 4 mg Pantoprazole Sodium (Protonix) 20 mg PO DAILY [facility] Last Admin: 05/31/18 09:33 Dose: 20 mg Senna/Docusate Sodium (Chelita-Colace) 1 tab PO BID [facility] Last Admin: 05/31/18 09:34 Dose: Not Given Sennosides (Senokot) 17.2 mg PO Q12H PRN PRN Reason: Moderate Constipation Sodium Chloride (Ns Flush) 2 ml IV.FLUSH PRN PRN PRN Reason: FLUSH AFTER USING IV ACCESS Sodium Chloride (Ns Flush) 2 ml IV.FLUSH BID [facility] Last Admin: 05/31/18 09:34 Dose: Not Given Sodium Chloride (Ns Flush) 2 ml IV.FLUSH PRN PRN PRN Reason: FLUSH AFTER USING IV ACCESS Allergies Allergy/AdvReac Type Severity Reaction Status Date / Time No Known Allergies Allergy Severe Uncoded 05/13/16 13:38 Home Medications Medication Instructions Recorded Confirmed Type aspirin 81 mg PO DAILY [facility] 05/29/18 05/29/18 History donepezil 10 mg PO DAILY 05/29/18 05/29/18 History enalapril maleate 5 mg PO DAILY [facility] 05/29/18 05/29/18 History glipizide 10 mg PO DAILY 05/29/18 05/29/18 History metoprolol succinate 50 mg PO DAILY 05/29/18 05/29/18 History omeprazole 20 mg PO DAILY [facility] 05/29/18 05/29/18 History Physical Exam Vital signs: Vital Signs 05/30/18 16:23 05/30/18 20:00 05/31/18 00:00 Temperature 98.1 F 96.9 F L 97.7 F Pulse Rate 63 76 65 Respiratory Rate 15 18 18 Blood Pressure 168/79 H 129/60 124/60 Pulse Oximetry 98 97 95 05/31/18 00:15 05/31/18 04:00 05/31/18 08:00 Temperature 98.3 F 97.7 F Pulse Rate 60 69 59 L Respiratory Rate 20 16 Blood Pressure 158/84 H 148/72 H Pulse Oximetry 95 96 05/31/18 09:30 05/31/18 10:00 05/31/18 12:00 Temperature 97.7 F Pulse Rate 65 56 L Respiratory Rate 16 Blood Pressure 159/77 H Pulse Oximetry 95 95 05/31/18 15:00 Temperature 98.4 F Pulse Rate 80 Respiratory Rate 18 Blood Pressure 174/87 H Pulse Oximetry 97 Intake & Output 05/30/18 05/31/18 05/31/18 18:59 06:59 18:59 Intake Total 1625 / 1625 1240 / 1240 1000 / 1000 Output Total 2450 / 2450 Balance 1622 / 1622 -1210 / -1210 1000 / 1000 Weight 91 kg Intake: IV 975 / 975 1000 / 1000 1000 / 1000 NS Inj 1,000 ML @ 100 mls/hr IV 975 / 975 1000 / 1000 1000 / 1000 .CONT .Q10H [facility] Rx#:[id number] Oral 650 / 650 240 / 240 Output: Urine 2450 / 2450 Other: # Voids 1 Date of Last Bowel Movement 05/30/18 05/30/18 05/30/18 # Bowel Movements 1 0 Narrative: PE: GENERAL: Very pleasant elderly male in no acute distress. SKIN: Focused skin assessment warm and dry. HEENT: PERRLA, EOMI. No scleral icterus or conjunctival pallor. No lid lag or facial droop. +right eye ecchymosis/mild swelling. CARDIOVASCULAR: Regular rate and rhythm. No obvious murmurs to auscultation. No chest tenderness to palpation. RESPIRATORY: No obvious rhonchi or wheezing. Clear to auscultation. Breath sounds equal bilaterally. GASTROINTESTINAL: Abdomen soft, non-tender, nondistended. BS normal. MUSCULOSKELETAL: Extremities without clubbing, cyanosis, or edema. No obvious deformities. NEUROLOGICAL: Awake, alert and oriented x4. No focal neurologic deficits. Moving both upper and lower extremities spontaneously. PSYCHIATRIC: Appropriate mood and affect. Insight and judgment normal. Results 05/30/18 05:27 05/31/18 05:17 Cardiac Enzymes 05/29/18 05/29/18 05/30/18 Range/Units 18:14 18:14 00:47 AST 23 (15-37) U/L Troponin I Less than 0.02 L 0.03 (0.02-0.05) ng/mL B-Natriuretic Peptide 401 H (0-100) pg/mL 05/30/18 Range/Units 05:27 AST 25 (15-37) U/L Troponin I 0.02 (0.02-0.05) ng/mL B-Natriuretic Peptide (0-100) pg/mL Coagulation 05/29/18 05/29/18 Range/Units 18:14 18:14 PT 11.3 (9.8-11.6) sec APTT 28.9 (23.4-31.7) sec B-Natriuretic Peptide 401 H (0-100) pg/mL Lipids 05/31/18 Range/Units 05:17 Triglycerides 307 H (42-150) mg/dL Cholesterol 178 (120-200) mg/dL HDL Cholesterol 24.1 L (40.0-60.0) mg/dL Cholesterol/HDL Ratio 7.38 Ratio CBC 05/29/18 05/30/18 Range/Units 18:14 05:27 WBC 7.2 5.6 (4.0-11.0) th/mm3 RBC 4.35 L 3.87 L (4.50-5.90) mil/mm3 Hgb 13.6 12.2 L (13.0-17.0) gm/dL Hct 38.1 L 33.8 L (39.0-51.0) % Plt Count 174 143 L (150-450) th/mm3 Neut # (Auto) 5.3 3.5 (1.8-7.7) th/mm3 Lymph # (Auto) 1.2 1.4 (1.0-4.8) th/mm3 [place] # (Auto) 0.4 0.4 (0.0-0.9) th/mm3 Eos # (Auto) 0.2 0.3 (0.0-0.4) th/mm3 Baso # (Auto) 0.0 0.0 (0.0-0.2) th/mm3 Comprehensive Metabolic Panel 05/29/18 05/30/18 05/31/18 Range/Units 18:14 05:27 05:17 Sodium 140 146 H 145 (136-145) meq/L Potassium 4.5 3.7 D 3.8 (3.5-5.1) meq/L Chloride 107 113 H 113 H (98-107) meq/L Carbon Dioxide 26.6 27.1 25.8 (21.0-32.0) meq/L BUN 14 12 10 (7-18) mg/dL Creatinine 1.28 1.07 1.13 (0.60-1.30) mg/dL Calcium 8.6 7.8 L D 7.9 L (8.5-10.1) mg/dL AST 23 25 (15-37) U/L ALT 22 18 (12-78) U/L Alkaline Phosphatase 65 48 (45-117) U/L Total Protein 6.6 5.4 L D (6.4-8.2) g/dL Albumin 3.5 2.8 L D (3.4-5.0) g/dL Intake and Output 05/31/18 05/31/18 05/31/18 06:59 14:59 22:59 Intake Total 1240 / 1240 1000 / 1000 Output Total 2450 / 2450 Balance -1210 / -1210 1000 / 1000 Intake: IV 1000 / 1000 1000 / 1000 NS Inj 1,000 ML @ 100 mls/hr IV 1000 / 1000 1000 / 1000 .CONT .Q10H [facility] Rx#:[id number] Oral 240 / 240 Output: Urine 2450 / 2450 Other: # Voids 1 Date of Last Bowel Movement 05/30/18 # Bowel Movements 0 Weight 91 kg - Imaging and Cardiology Imaging: Impressions Cervical Spine CT 05/29/18 18:09 CONCLUSION: 1. No acute fracture or subluxation of the cervical spine. 2. Degenerative changes as above. Chest X-Ray 05/29/18 18:09 CONCLUSION: 1. Cardiomegaly. 2. Bibasilar patchiness consistent with atelectasis and/or infiltrates. Face CT 05/29/18 18:09 CONCLUSION: 1. No acute facial bone fractures. Head CT 05/29/18 18:09 CONCLUSION: 1. No acute intracranial abnormality. . Assessment and Plan - Assessment (1) DM (diabetes mellitus) Code(s): E11.9 - Type 2 diabetes mellitus without complications Status: Acute (2) Syncope Code(s): R55 - Syncope and collapse Status: Acute (3) Sinus pause Code(s): I45.5 - Other specified heart block Status: Acute - Plan 1. Syncope. Found to have a 7 second pause this morning Unsure if symptomatic or if he was sleeping Currently on Toprol, will hold for now and transfer to cardiac floor to observe on telemetry Will discuss with Dr. Chaudhry about consideration of PPM therapy EF 45-50% 2. Chest pain. Has not had any while in the hospital Planned for outpt cath on 06/05, will discuss with Dr. Chaudhry about timing of this 3. Coronary artery disease with a history of 2 separate coronary artery bypass grafting. 4. Hypertension. 5. Hyperlipidemia. 6. Diabetes. 7. Nausea with emesis. 8. Poor oral intake.
[2018-06-01] MEDS ORDERED: Mupirocin 2% Nasal Oint Topical Syringe EACH NARE SCH (07:15)
[2018-06-01] MEDS ORDERED: Chlorhexidine Gluconate 2% 1 Pack (2 Cloths) TOPICAL SCH (07:15)
[2018-06-01] MEDS: Senna/Docusate Sodium 8.6/50 MG Tablet PO SCH ×2 (09:03→20:15)
[2018-06-01] MEDS: Sod Chloride 0.9% Inj 1,000 ML IV.CONT SCH (09:06)
[2018-06-01] MEDS: Insulin NovoLOG Aspart Correctional Sugar Inj SQ SCH ×4 (09:07→20:15)
[2018-06-01] MEDS ORDERED: ceFAZolin 2 GM Premix Inj 2 GM/50 ML PIGGYBACK IV.SIG SCH (11:00)
[2018-06-01] MEDS ORDERED: Vancomycin Inj 1,000 MG in Sodium Chlor 0.9% Inj 250 ML IV.SIG SCH (11:00)
--- NOTE | 2018-06-01 11:11 | P.PNCA ---
Subjective Interval history: Denies recurrent syncope. Denies CP, dyspnea, palpitations, dizziness. Slept fairly well. Medications and Allergies Active Medications: Active Medications Acetaminophen (Tylenol) 650 mg PO Q4H PRN PRN Reason: Temp > 100.4 Last Admin: 05/30/18 20:39 Dose: 650 mg Al Hydroxide/Mg Hydroxide (Milk Of Magnesia Liq) 30 ml PO Q12H PRN PRN Reason: Mild Constipation Aspirin (Aspirin Chew) 81 mg PO DAILY [facility] Last Admin: 06/01/18 09:04 Dose: 81 mg Bisacodyl (Dulcolax Supp) 10 mg RECTAL DAILY PRN PRN Reason: SEVERE CONSITIPATION Chlorhexidine Gluconate (Chlorhexidine 2% Cloth) 3 pack TOPICAL [employer]ET[employer]L [employer] [facility] Stop: 06/04/18 07:03 Dextrose (D50w Vial) 50 ml IV.PUSH UNSCH PRN PRN Reason: PER HYPOGLYCEMIA PROTOCOL Diphenhydramine HCl (Benadryl) 50 mg PO HS PRN PRN Reason: INSOMNIA Donepezil HCl (Aricept) 10 mg PO DAILY [facility] Last Admin: 06/01/18 09:03 Dose: 10 mg Enalapril Maleate (Vasotec) 5 mg PO DAILY [facility] Last Admin: 06/01/18 09:05 Dose: 5 mg Enoxaparin Sodium (Lovenox Inj) 40 mg SQ DAILY [facility] Last Admin: 05/31/18 09:33 Dose: 40 mg Glucagon (Glucagon Inj) 1 mg OTHER PRN PRN PRN Reason: for Hypoglycemia Protocol Sodium Chloride (Ns Inj) 1,000 mls @ 100 mls/hr IV.CONT .Q10H [facility] Stop: 06/01/18 13:00 Last Admin: 06/01/18 09:06 Dose: 100 mls/hr Cefazolin Sodium/Dextrose (Ancef 2 Gm Premix Inj) 2 gm in 50 mls @ 100 mls/hr IV.SIG [employer]RYL [employer] [facility] Stop: 06/04/18 07:04 Vancomycin HCl 1,000 mg/ (Sodium Chloride) 250 mls @ 250 mls/hr IV.SIG [employer]RYL [employer] [facility] Stop: 06/04/18 07:04 Insulin Aspart (Novolog Insulin Correctional Sugar Inj) 0 unit SQ ACHS [facility]; Protocol Last Admin: 06/01/18 09:07 Dose: Not Given Lactulose (Lactulose Liq) 30 ml PO DAILY PRN PRN Reason: SEVERE CONSITIPATION Metoprolol Succinate (Toprol Xl) 50 mg PO DAILY [facility] Last Admin: 05/31/18 09:34 Dose: Not Given Morphine Sulfate (Morphine Inj) 2 mg IV.PUSH Q4H PRN PRN Reason: PAIN SCALE 6 TO 10 Mupirocin (Bactroban 2% Nasal Oint) 1 applicatio EACH NARE [employer] [facility] Stop: 06/04/18 07:03 Ondansetron HCl (Zofran Inj) 4 mg IV.PUSH Q6H PRN PRN Reason: NAUSEA OR VOMITING Last Admin: 05/30/18 12:08 Dose: 4 mg Pantoprazole Sodium (Protonix) 40 mg PO DAILY [facility] Last Admin: 06/01/18 09:04 Dose: 40 mg Povidone Iodine (Betadine 5% Antisepsis Kit) 1 applicatio EACH NARE [employer] [facility] Stop: 06/04/18 07:03 Senna/Docusate Sodium (Chelita-Colace) 1 tab PO BID [facility] Last Admin: 06/01/18 09:03 Dose: 1 tab Sennosides (Senokot) 17.2 mg PO Q12H PRN PRN Reason: Moderate Constipation Sodium Chloride (Ns Flush) 2 ml IV.FLUSH PRN PRN PRN Reason: FLUSH AFTER USING IV ACCESS Sodium Chloride (Ns Flush) 2 ml IV.FLUSH BID [facility] Last Admin: 05/31/18 20:00 Dose: 2 ml Sodium Chloride (Ns Flush) 2 ml IV.FLUSH PRN PRN PRN Reason: FLUSH AFTER USING IV ACCESS Allergies Allergy/AdvReac Type Severity Reaction Status Date / Time No Known Allergies Allergy Severe Uncoded 05/13/16 13:38 Home Medications Medication Instructions Recorded Confirmed Type aspirin 81 mg PO DAILY [facility] 05/29/18 05/29/18 History donepezil 10 mg PO DAILY 05/29/18 05/29/18 History enalapril maleate 5 mg PO DAILY [facility] 05/29/18 05/29/18 History glipizide 10 mg PO DAILY 05/29/18 05/29/18 History metoprolol succinate 50 mg PO DAILY 05/29/18 05/29/18 History omeprazole 20 mg PO DAILY [facility] 05/29/18 05/29/18 History Physical Exam Vital signs: Vital Signs 05/31/18 12:00 05/31/18 15:00 05/31/18 16:00 Temperature 97.7 F 98.4 F 98.4 F Pulse Rate 56 L 80 68 Respiratory Rate 16 18 18 Blood Pressure 159/77 H 174/87 H 114/90 Pulse Oximetry 95 97 96 05/31/18 20:00 05/31/18 21:00 05/31/18 23:49 Temperature 98.1 F 98.3 F Pulse Rate 75 61 60 Respiratory Rate 18 18 Blood Pressure 164/86 H 160/88 H Pulse Oximetry 97 96 06/01/18 00:00 06/01/18 01:00 06/01/18 02:00 Temperature Pulse Rate 60 60 55 L Respiratory Rate Blood Pressure Pulse Oximetry 06/01/18 03:00 06/01/18 04:00 06/01/18 05:00 Temperature 98.4 F Pulse Rate 58 L 62 67 Respiratory Rate 18 Blood Pressure 157/87 H Pulse Oximetry 96 06/01/18 06:00 06/01/18 07:51 Temperature 98.0 F Pulse Rate 65 65 Respiratory Rate 18 Blood Pressure 175/77 H Pulse Oximetry 95 Intake & Output 05/31/18 06/01/18 06/01/18 18:59 06:59 18:59 Intake Total 1480 / 1480 1530 / 1530 Output Total 200 / 200 800 / 800 Balance 1280 / 1280 730 / 730 Weight 91.8 kg Intake: IV 1000 / 1000 1000 / 1000 NS Inj 1,000 ML @ 100 mls/hr IV 1000 / 1000 1000 / 1000 .CONT .Q10H [facility] Rx#:[id number] Oral 480 / 480 530 / 530 Output: Urine 200 / 200 800 / 800 Other: # Voids 1 1 Date of Last Bowel Movement 05/30/18 # Bowel Movements 0 - Constitutional no acute distress - Routine Neck Exam Absent: JVD - Routine Respiratory Exam Present: CTA bilaterally - Routine Cardiovascular Exam Present: RRR, S1, S2, murmur. Absent: gallop Comments: II/ JUVENCIO base with normal S2. - Routine Abdominal Exam Present: soft, normoactive bowel sounds. Absent: tenderness, organomegaly - Routine Extremities Exam Absent: cyanosis, clubbing, edema Results 05/30/18 05:27 05/31/18 05:17 Lipids 05/31/18 Range/Units 05:17 Triglycerides 307 H (42-150) mg/dL Cholesterol 178 (120-200) mg/dL HDL Cholesterol 24.1 L (40.0-60.0) mg/dL Cholesterol/HDL Ratio 7.38 Ratio Comprehensive Metabolic Panel 05/31/18 Range/Units 05:17 Sodium 145 (136-145) meq/L Potassium 3.8 (3.5-5.1) meq/L Chloride 113 H (98-107) meq/L Carbon Dioxide 25.8 (21.0-32.0) meq/L BUN 10 (7-18) mg/dL Creatinine 1.13 (0.60-1.30) mg/dL Calcium 7.9 L (8.5-10.1) mg/dL Intake and Output 05/31/18 06/01/18 06/01/18 22:59 06:59 14:59 Intake Total 530 / 530 1480 / 1480 Output Total 400 / 400 600 / 600 Balance 130 / 130 880 / 880 Intake: IV 1000 / 1000 NS Inj 1,000 ML @ 100 mls/hr IV 1000 / 1000 .CONT .Q10H [facility] Rx#:[id number] Oral 530 / 530 480 / 480 Output: Urine 400 / 400 600 / 600 Other: # Voids 1 # Bowel Movements 0 Weight 91.8 kg Assessment and Plan - Assessment (1) Syncope Code(s): R55 - Syncope and collapse Status: Acute Plan: Stable overnight. No further pauses. In light of the patient's syncopal episode and evidence for severe sick sinus syndrome, recommend pacemaker implant. Pacer today. (2) Coronary artery disease Code(s): I25.10 - Atherosclerotic heart disease of [place] coronary artery without angina pectoris Status: Chronic Plan: Stable since admission. No evidence for ACS. Patient was to have outpatient cath this Friday due to ongoing angina. Patient somewhat reluctant to proceed with cath. Will postpone the procedure. (3) Hypertension Code(s): I10 - Essential (primary) hypertension Status: Chronic Plan: Mostly hypertensive. Will resume metoprolol after pacemaker implant. Consider increasing enalapril dosing. - Plan Code Status: full code Discussed Condition With: patient (1) Syncope Qualifiers: Syncope type: unspecified Qualified Code(s): R55 - Syncope and collapse (2) Coronary artery disease Qualifiers: Coronary Disease-Associated Artery/Lesion type: [place] artery [place] vs. transplanted heart: [place] heart Associated angina: with stable angina Qualified Code(s): I25.118 - Atherosclerotic heart disease of [place] coronary artery with other forms of angina pectoris (3) Hypertension Qualifiers: Hypertension type: essential hypertension Qualified Code(s): I10 - Essential (primary) hypertension
[2018-06-01] MEDS ORDERED: fentaNYL Citrate Inj 100 MCG/2 ML Ampul ONE (11:38)
[2018-06-01] MEDS ORDERED: Sod Chloride 0.9% Inj 1,000 ML IV.CONT ONE (11:45)
[2018-06-01] MEDS ORDERED: Phenylephrine/NS 1000 MCG/10ML Syringe IV.PUSH ONE (11:45)
[2018-06-01] MEDS ORDERED: Lidocaine 2% Inj 50 ML Vial ONE (11:54)
--- NOTE | 2018-06-01 12:12 | P.PN ---
Subjective Interval history: Follow-up syncope/sick sinus syndrome June 01, 2018-patient seen and examined, denies any shortness of breath, chest pain. No syncopal episodes since admission. However patient reports some dizziness when moving from sitting position to standing. Currently n.p.o. pending PPM placement Physical Exam Vital signs: Vital Signs 05/31/18 15:00 05/31/18 16:00 05/31/18 20:00 Temperature 98.4 F 98.4 F 98.1 F Pulse Rate 80 68 75 Respiratory Rate 18 18 Blood Pressure 174/87 H 114/90 164/86 H Pulse Oximetry 97 96 97 05/31/18 21:00 05/31/18 23:49 06/01/18 00:00 Temperature 98.3 F Pulse Rate 61 60 60 Respiratory Rate 18 Blood Pressure 160/88 H Pulse Oximetry 96 06/01/18 01:00 06/01/18 02:00 06/01/18 03:00 Temperature Pulse Rate 60 55 L 58 L Respiratory Rate Blood Pressure Pulse Oximetry 06/01/18 04:00 06/01/18 05:00 06/01/18 06:00 Temperature 98.4 F Pulse Rate 62 67 65 Respiratory Rate 18 Blood Pressure 157/87 H Pulse Oximetry 96 06/01/18 07:03 06/01/18 07:51 06/01/18 08:00 Temperature 98.0 F Pulse Rate 67 65 67 Respiratory Rate 18 Blood Pressure 175/77 H Pulse Oximetry 95 Intake & Output 05/31/18 06/01/18 06/01/18 18:59 06:59 18:59 Intake Total 1480 / 1480 1530 / 1530 Output Total 200 / 200 800 / 800 Balance 1280 / 1280 730 / 730 Weight 91.8 kg Intake: IV 1000 / 1000 1000 / 1000 NS Inj 1,000 ML @ 100 mls/hr IV 1000 / 1000 1000 / 1000 .CONT .Q10H [facility] Rx#:[id number] Oral 480 / 480 530 / 530 Output: Urine 200 / 200 800 / 800 Other: # Voids 1 1 Date of Last Bowel Movement 05/30/18 # Bowel Movements 0 Narrative: GENERAL: NAD SKIN: Warm and dry. HEAD: Normocephalic. EYES: No scleral icterus. No injection or drainage. NECK: Supple, trachea midline. No JVD or lymphadenopathy. CARDIOVASCULAR: Regular rate and rhythm without murmurs, gallops, or rubs. RESPIRATORY: Breath sounds equal bilaterally. No accessory muscle use. GASTROINTESTINAL: Abdomen soft, non-tender, nondistended. MUSCULOSKELETAL: No cyanosis, or edema. BACK: Nontender without obvious deformity. No CVA tenderness. Results - Labs CBC & Chem 7: 05/30/18 05:27 05/31/18 05:17 Laboratory Results - last 24 hr 05/31/18 05/31/18 05/31/18 13:02 17:24 19:52 POC Glucose 165 H 149 H 122 H 06/01/18 07:54 POC Glucose 130 H Assessment and Plan - Assessment (1) Syncope Code(s): R55 - Syncope and collapse Status: Acute (2) Fall Code(s): W19.XXXA - Unspecified fall, initial encounter Status: Acute (3) DM (diabetes mellitus) Code(s): E11.9 - Type 2 diabetes mellitus without complications Status: Acute (4) Chest pain Code(s): R07.9 - Chest pain, unspecified Status: Acute - Plan 87-year-old man with Syncope Sick sinus syndrome Plan for PPM placement today June 01, 2018 Management per cardiology CAD Plan for outpatient left heart catheterization, however patient is currently reluctant for it Management per cardiology HTN continue blood pressure control; increase beta-russell after PPM placement DYSLIPIDEMIA continue statin NIDDM non-insulin- continue insulin sliding scale diabetic diet GERD continue omeprazole ALZHEIMER'S DEMENTIA early continued donezepil OBESITY BMI 32 outpatient follow-up when stable MILD PROTEIN CALORIE MALNUTRITION, albumin 2.8continue nutritional support DVT prophylaxis subcu Lovenox (1) Syncope Qualifiers: Syncope type: unspecified Qualified Code(s): R55 - Syncope and collapse
[2018-06-01] MEDS ORDERED: Iohexol 350 MG/ML 50 ML Vial (for EPS) IVCONTRAST ONE (12:30)
--- NOTE | 2018-06-01 13:02 | CATHPROC ---
Patient Name: Campbell Saba Study #: [id number] Initial MD: Juan Chaudhry Date of : 1930 Study Date: 06/01/2018 Cardiac Catheterization Report 06/01/2018 1:02:09 PM Financial #: [id number] 1 of 10 Patient Name: Campbell Saba Study #: [id number] Initial MD: Juan Chaudhry Date of : 1930 Study Date: 06/01/2018 Entire Case Report Patient Information Patient Name Campbell Saba Date of 1930 Age 87 years Financial # [id number] Gender M AlternateID Lab Number 6 Room Number 255 Height (in) 66.0 Height (cm) 167.6 BSA 2.01 Weight (lbs) 202.0 Weight (kg) 91.8 Patient Address/Phone Number Home Address [facility] Home Phone Number [phone] [facility] [address] Study Information Study Number Admission Scheduled Start Study Start [id number] May 29 2018 8:10PM 06/01/2018 Jun 01 2018 10:31AM [facility] Cardiac Catheterization Admit Source Facility Department [facility] Physician and Clinical Staff Initial Juan Bailey Marketing Support Coordinator Cierra Leone RCIS TECH2 Marketing Support Coordinator Chandrika Sears RN Other Anesthesia, DIRECTOR OF GUIDANCE IN [employer] Recorder Mayda Duarte RN Scrub Tyler Ring,RT(R) Procedures Performed Procedure Location (Site) Vessel Name Lead Insertion Venogram Antecubital (left) Antecubital Vein 06/01/2018 1:02:09 PM Financial #: [id number] 2 of 10 Patient Name: Campbell Saba Study #: [id number] Initial MD: Juan Chaudhry Date of : 1930 Study Date: 06/01/2018 Equipment Time Dipping Machine Operator Description Size Mfg Part Number Used/Scraped 12:22 BIOTRONIK LEAD, SOLIA 60 PRO MRI * [id number] Used 12:32 BIOTRONIK LEAD, SOLIA 60 53 PRO MRI * [id number] Used PACEMAKER, ENDORA 8 DR-T PRO 12:40 BIOTRONIK DDDR [id number] Used MRI [id number] 11:32 MEDLINE Socogame BLANKET,WARM AIR CCL * Used *[id number] [id number] 11:32 MEDLINE [employer]ogame SUTURE, STRIP PLUS 1/2" * Used *[id number] 11:32 MEDLINE PACER ADHESIVE, MASTISOL 2/3CC 2/3CC 0523-48 Used 11:32 MEDLINE PACER ESCOBAR, LIMB * 2530 *[id number] Used [id number] 11:32 MEDLINE PACER PACK, PACER CUSTOM * Used *[id number] 11:32 MEDLINE PACER PEN, SKIN DUAL W/ RULER * Used *[id number] 12:21 [employer] PACER SAFE SHEATH, FR6, 13CM FR 6 CLS-1006 Used 12:21 [employer] PACER SAFE SHEATH, FR6, 13CM FR 6 CLS-1006 Used 11:59 Needle Sponge Count 2 22 Used 11:59 Needle Sponge Count 30 1 Used 11:59 Needle Sponge Count 4 4 Used 12:13 [employer]COMED OMNIPAQUE, 350 MG, 50ML 50ML [id number] Used [id number] *[id number] SUTURE, 3-0 VICRYL [SH] ([id number]) SUTURE, 3-0 VICRYL [SH] ([id number]) SUTURE, 4-0 MONOCRYL [PS2] (Y496G) [facility] PAD, ELECTROSURGICAL 11:32 * [id number] *[id number] Used [employer] [place] [id number] 11:32 [employer] CHARISSE. / * Used *16752 Equipment Model, Serial, Lot Number and Expiration Data Description Model Number Serial Number Lot Number Expiration Date LEAD, SOLIA 60 PRO MRI [id number] 04-08-2020 LEAD, SOLIA 60 53 PRO MRI 198639 [id number] 04-08-2020 PACEMAKER, ENDORA 8 DR-T PRO [id number] 09-07-2019 MRI 06/01/2018 1:02:09 PM Financial #: [id number] Patient Name: Campbell Saba Study #: [id number] Initial MD: Juan Chaudhry Date of : 1930 Study Date: 06/01/2018 Insurance Information Insurance Payor Private Health Insurance Third Democrat Third Democrat Number [facility] History: Allergies Allergy Reaction No Known Allergies History: Risk Factors Hypertension Yes Prior PCI Prior CABG Prior CABGDate Yes Yes 09/14/2004 Diabetes Diabetes Therapy Yes Oral Labs Hgb (g/dl) Hct (%) RBC (MIL/MM3) WBC (l/cumm) Platelets (thousands) 11.60-17.00 35.00-51.00 4.00-5.90 4.00-11.00 150.00-450.00 12.0 33 3.8 5.6 143 Glucose (mg/dl) BUN (mg/dl) Creatinine (mg/dl) BUN:Creatinine (1:x) 74.00-106.00 7.00-18.00 0.50-1.30 10.00-20.00 122 10 1.1 9.1 Na (meq/l) K (meq/l) 136.00-145.00 3.50-5.10 145 3.8 INR (PTT:PT) 0.90-1.10 1.1 Cholesterol (mg/dl) HDL (mg/dl) 120.00-200.00 40.00-60.00 178 24 Medication 06/01/2018 1:02:09 PM Financial #: [id number] Patient Name: Campbell Saba Study #: [id number] Initial MD: Juan Chaudhry Date of : 1930 Study Date: 06/01/20 18 Medication Total Dose (Bolus/Oral) Medication Total Dosage/Unit 2% XYLOCAINE 50 mL Medications (Bolus/Oral) Medication Time Given Dosage/Unit Administered By Reason 06/01/2018 12:12:31 2% XYLOCAINE 50 mL Juan Chaudhry PM Patient arrived on 50 mL 2% XYLOCAINE given by Juan Chaudhry in Left shoulder via Subcutaneous. Ordere d by Juan Chaudhry. Medication (Drip) Medication Time Given Dosage/Unit Concentration/Unit Diluent (ml) Solution 06/01/2018 11:35:10 IV Solutions 0 mL (IV) NaCl .9 AM Patient arrived on IV Solutions in Left Antecubital via Peripheral IV. Pump/Drip Flow = 30 ml/hr usin g NaCl .9. Ordered by Juan Chaudhry. Reason: As per physicians verbal order. 06/01/2018 11:35:43 IV Solutions 0 mL (IV) NaCl .9 AM IV Solutions given in lab by Mayda Duarte RN in Right Forearm via Peripheral IV. Pump/Drip Flow = 30 ml/hr using NaCl .9. Ordered by Juan Chaudhry. Reason: As per physicians verbal order. 06/01/2018 12:04:09 VANCOMYCIN DRIP 1 g PM Patient arrived on 1 g VANCOMYCIN DRIP given by Anesthesia, DIRECTOR [employer] in Left Antecubital via Peripheral I V. Ordered by Juan Chaudhry. Reason: As per physicians verbal order. 06/01/2018 1:02:09 PM Financial #: [id number] 5 of 10 Patient Name: Campbell Saba Study #: [id number] Initial MD: Juan Chaudhry Date of : 1930 Study Date: 06/01/2018 Initial Case Assessment Cardiovascular HR Rhythm NIBP 64 2dhb 154/73 Edema Present Skin color Skin None Normal Warm Dry Circulatory - Right Pulses Dorsalis Pedis 1 Scale (0,1,2,3,4,d) Circulatory - Left Pulses Dorsalis Pedis 1 Scale (0,1,2,3,4,d) Circulatory - Lower Extremities Color Lower Right Color Lower Left Normal Normal Neurological State Oriented to time-place- Alert Moves all extremities person Respiration - General Respiration Rate SpO2 (%) (B/min) 18 96 06/01/2018 1:02:09 PM Financial #: [id number] 6 of 10 Patient Name: Campbell Saba Study #: [id number] Initial MD: Juan Chaudhry Date of : 1930 Study Date: 06/01/2018 Final Case Assessment Cardiovascular HR NIBP 72 112/56 Edema Present Skin color Skin None Normal Warm Dry Circulatory - Right Pulses Dorsalis Pedis 1 Scale (0,1,2,3,4,d) Circulatory - Left Pulses Dorsalis Pedis 1 Scale (0,1,2,3,4,d) Circulatory - Lower Extremities Color Lower Right Color Lower Left Normal Normal Neurological State Drowsy Moves all extremities Respiration - General Respiration Rate SpO2 (%) O2 (lpm) (B/min) 14 99 4 Chronological Log Time Study Chronological Log 11:31:38 Patient arrived via Bed. 11:31:39 Patient Name, D.O.B, / Armband Verified By R.N. 11:31:40 Consent signed by the physician and the patient and verified by the [facility] staff. 11:31:40 Pre-op and post- op instructions given; patient acknowledges understanding of instructions. 11:31:41 Verbal Stimulation=2 Physical Stimulation=2 Airway=2 Respiration=2 TOTAL=8. (0=absent, 1=li mited, 2=present) 11:31:42 Patient has been NPO for More than 6Hrs. 11:32:07 Patient Warmer Placed on the Table. 11:32:08 Disposable Defibrillator Pads Placed On Patient. 11:32:09 History and physical on the chart. 06/01/2018 1:02:09 PM Financial #: [id number] Patient Name: Campbell Saba Study #: [id number] Initial MD: Juan Chaudhry Date of : 1930 Study Date: 06/01/2018 11:32:10 A # 20 IV was noted in the Forearm (right). Grade = 0 11:32:11 A # 20 IV was noted in the Antecubital (left). Grade = 0 11:32:53 2% CHLORHEXIDINE GLUCONATE WASH AND NASAL SWIPE DONE PRIOR TO PROCEDURE. Skin Breakdown- bruising rt eye, generalized scabs and skin tears to arms and to midsternal alisia st area. Bruising left 11:33:43 lateral chest below rib cage. 11:34:09 Kyra Prominences Protected Patient arrived on IV Solutions in Left Antecubital via Peripheral IV. Pump/Drip Flow = 30 ml/h r using NaCl .9. Ordered 11:35:10 by Juan Chaudhry. Reason: As per physicians verbal order. IV Solutions given in lab by Mayda Duarte RN in Right Forearm via Peripheral IV. Pump/Drip Flow = 30 ml/hr using 11:35:43 NaCl .9. Ordered by Juan Chaudhry. Reason: As per physicians verbal order. 11:36:27 Anesthesia at bedside. Assumes care of patient. Assessment: Initial Case, HR=64 BPM, Rhythm=2dhb, IBGR=707/73 mmhg, Edema=None, Color=Normal, S kin = Warm, Dry Right Pulses: Macario Ped=1 Left Pulses: Macario Ped=1 11:55:07 Lower Right Extremities: Color=Normal Lower Left Extremities: Color=Normal Neurological: State=Alert, Ox3, MAI Respiration: Resp=18 B/min, SpO2=96 % 11:55:35 History and physical on the chart or being dictated. 11:55:37 Table restraints applied according to hospital policy 11:55:39 Left Upper Chest Prepped Times Two. 11:55:49 Bovie ground pad applied to: right thigh First Sponge And Instrument Count Done by Cierra Leone, SECURITY PATROL OFFICER TECH2. 11:55:57 Hypo's: 4, Sponges: 30, Bovie/scratch: 2 Sutures: 5, Blades: 3, Instruments: 26, Syveck Patches: 0 verified by DB 11:56:57 Reference ECG taken 12:00:21 Anesthesiologist present for LMA insertion. 12:01:03 A sterile drape was applied after a 5 minute prep dry time. Patient arrived on 1 g VANCOMYCIN DRIP given by Anesthesia, DIRECTOR OF [employer]ANCE [employer] in Left Antecubital via Periph eral IV. Ordered by 12:04:09 Juan Chaudhry. Reason: As per physicians verbal order. 12:05:08 MD paged 12:05:34 MD responded 12:07:24 MD arrived. Time Out. Correct patient, procedure, procedure equipment, site and side verified with physicia n present. Time 12:11:10 concurred by MD, individual staff and DIRECTOR OF [employer]. Time Out #2 - Consents verified, patient in correct position, all results are labled and displa yed, safety precautions 12:11:24 taken, antibiotics administered. Time out concurred by MD, individual staff and DIRECT[employer] in procedu re 12:12:23 Case Start Patient arrived on 50 mL 2% XYLOCAINE given by Juan Chaudhry in Left shoulder via Subcutaneous. Ordered by Richa, 12:12:31 Juan. 12:12:40 The Antecubital (left) was manually injected with 15 cc's of contrast. OMNIPAQUE, 350 MG, 5 0ML 50ML used. 12:12:40 Surgical Incision Made. 12:12:45 A pocket was created at the Lt. upper chest. 06/01/2018 1:02:09 PM Financial #: [id number] Patient Name: Campbell Saba Study #: [id number] Initial MD: Juan Chaudhry Date of : 1930 Study Date: 06/01/2018 12:18:48 Vascular access was obtained in the Subclav. Vein (Lft. 12:19:08 Wire inserted 12:19:41 Vascular access was obtained in the Subclav. Vein (Lft. 12:20:10 Wire inserted 12:20:29 A SAFE SHEATH, FR6, 13CM FR 6 was advanced into the Subclav. Vein (Lft using the Cutdown te chnique. 12:21:02 A SAFE SHEATH, FR6, 13CM FR 6 was advanced into the Subclav. Vein (Lft using the Cutdown te chnique. 12:21:16 A LEAD, SOLIA 60 PRO MRI * was inserted and positioned in the RV. 12:22:37 Lead placement verified under fluoroscopy 12:24:43 The RV lead impedance and threshold being tested. 12:28:10 Lead repositioned under fluoro 12:30:30 Retesting the lead. 12:30:59 The RV lead was sutured to the fascia. 12:31:31 A LEAD, SOLIA 60 53 PRO MRI * was inserted and positioned in the RA. 12:32:42 Lead placement verified under fluoroscopy 12:38:27 The Atrial lead impedance and threshold is being tested. 12:39:11 The Atrial lead was sutured to the fascia. 12:39:46 A PACEMAKER, ENDORA 8 DR-T PRO MRI DDDR was connected and placed in the pocket. Second Sponge And Instrument Count Done by Cierra Leone, SECURITY PATROL OFFICER TECH2. 12:44:29 Hypo's: 4, Sponges: 30, Bovie/scratch: 2 Sutures: 5, Blades: 3, Instruments:0, Syveck Patches: 0 verified by MM 12:46:55 The pocket is being closed. 12:47:11 Implant Procedure was performed. 12:47:18 A PPM Implant . (Dual) 12:47:48 Implantable Device card placed in patient's chart. 12:48:04 No case complications noted. 12:48:05 Cine recording checked. 12:51:25 PACU called. Spoke to Nitesh 12:52:29 The pocket was closed. Final Sponge And Instrument Count Done by Cierra Leone RCIS TECH2. 12:52:39 Hypo's: 4, Sponges: 30, Bovie/scratch: 2 Sutures: 5, Blades: 3, Instruments: 26, Syveck Patches: 0 verified by DB 12:53:01 Case End (Physician broke scrub) 12:53:02 Bedside Report will be given. 12:55:00 Steri-strips and a sterile dressing applied to site. 12:58:54 A sling was placed on the affected arm. 13:00:00 LMA removed by anesthesia and supplemental oxygen applied by SF 06/01/2018 1:02:09 PM Financial #: [id number] Patient Name: Campbell Saba Study #: [id number] Initial MD: Juan Chaudhry Date of : 1930 Study Date: 06/01/2018 Assessment: Final Case, HR=72 BPM, DKUU=204/56 mmhg, Edema=None, Color=Normal, Skin = Warm, Dr y Right Pulses: Macario Ped=1 Left Pulses: Macario Ped=1 13:03:11 Lower Right Extremities: Color=Normal Lower Left Extremities: Color=Normal Neurological: State=Drowsy, MAI Respiration: Resp=14 B/min, SpO2=99 %, O2=4 lpm 13:05:52 Defibrillator and ground pads removed. Skin intact. 13:06:02 Patient moved to [facility] and transported to PACU with DIRECTOR OF GUIDANCE IN [employer] and tech accompanying. End Study - Contrast Media Used In Study Contrast Total Opened (mL) Total Used (mL) Total Wasted (mL) Omnipaque 350 50 15 35 End Study - Maximum Contrast Load Max Contrast Load (mL) 417.4 End Study - Radiation Exposure Fluoro Time Fluoro Dose (mGy) Cine Dose (uGym2) (minutes) 7.7 152 2000 End Study - Patient Disposition Complications Transferred To Telemetry Bed 06/01/2018 1:02:09 PM Financial #: [id number]
--- NOTE | 2018-06-01 13:08 | MP ---
cc: Juan Chaudhry MD DATE OF OPERATION: 06/01/2018 PROCEDURE PERFORMED: Dual chamber permanent pacemaker implantation via the left subclavian vein. INDICATIONS: Severe sick sinus syndrome, syncope. OPERATIVE NOTE: The patient was brought to the operating suite in a fasting state after having signed informed consent. The left upper chest was prepped and draped as per policy and anesthetized with 1% lidocaine. A transverse incision was made inferior to the left clavicle and using blunt dissection a subcutaneous pocket was formed down to the pectoralis fascia. After administration of contrast through a left arm peripheral IV, central venous access was obtained via the left subclavian vein twice without difficulty. Over the more lateral guidewire, a 7-Burundian sheath was placed and through the sheath, a ventricular active fixation lead was introduced and its tip positioned in the right ventricular apex where good current of injury, stimulation threshold (0.8 volts) and sensitivity (12 millivolts) were demonstrated. This lead was secured into place using 2-0 silk ties down to the pectoralis fascia. Over the remaining guidewire, another 7-Burundian sheath was placed and through this sheath, an atrial active fixation lead was introduced and its tip positioned in the right atrial appendage where good current of injury, stimulation threshold (0.4 volts) and sensitivity (1.2 millivolts) were demonstrated. This lead was secured into place using 2-0 silk ties down to the pectoralis fascia. The leads were then connected to the pacemaker generator, which is a Biotronik Edora device. The leads and the generator were placed into the subcutaneous pocket, which was closed using 3-0 Vicryl interrupted stitches to close the subcutaneous tissue and then 4-0 Monocryl running stitch to close the subcuticular tissue. Overlapping Steri-Strips and a pressure dressing were applied. There were no apparent immediate complications. A portable chest x-ray is pending at the time of this dictation. CONCLUSIONS: Successful chamber permanent pacemaker implantation via the left subclavian vein using a Biotronik Edora pacemaker generator. MD CLOVIS Hanna/sharan , 12:56 PM , 01:02 PM LEX
--- NOTE | 2018-06-01 13:51 | XR ---
EXAM DATE: 06/01/2018 1:47 PM EST AGE/SEX: 87 years / Male INDICATIONS: Pneumothorax, post pacemaker. CLINICAL DATA: This is the patient's initial encounter. Patient reports that signs and symptoms have been present for 1 week and indicates a pain score of Nonresponsive. MEDICAL/SURGICAL HISTORY: . diabetes . coronary artery stent COMPARISON: [facility] [place], CHEST 1V SINGLE AP, 05/29/2018. . FINDINGS: There has been interval worsening of pulmonary infiltrates consistent with worsening pulmonary edema or pneumonia. Clinical correlation is recommended. The heart is enlarged. Left subclavian dual lead p acemaker has been placed and has its tips in right atrium and right ventricle. No pneumothorax is not ed. CONCLUSION: 1. There has been interval worsening of pulmonary infiltrates consistent with worsening pulmonary ed freddy or pneumonia. Clinical correlation is recommended. 2. Cardiomegaly. 3. Left subclavian dual lead pacemaker has been placed and has its tips in right atrium and right ve ntricle. No pneumothorax is noted. Electronically signed by: Dago Villeda MD Board Certified Radiologist 06/01/2018 1:50 PM EST
[2018-06-01] MEDS: Vancomycin Inj 1,400 MG in Sodium Chlor 0.9% Inj 500 ML IV.SIG SCH (23:09)
[2018-06-02 01:47] VITALS: RESP 18
[2018-06-02] MEDS ORDERED: Isosorbide Mononitrate 60 MG ER 24HR Tablet (Imdur) PO SCH (07:00)
[2018-06-02] MEDS: Senna/Docusate Sodium 8.6/50 MG Tablet PO SCH (08:37)
[2018-06-02] MEDS: Insulin NovoLOG Aspart Correctional Sugar Inj SQ SCH ×2 (08:38→12:22)
[2018-06-02] MEDS: Vancomycin Inj 1,400 MG in Sodium Chlor 0.9% Inj 500 ML IV.SIG SCH (11:23)
--- NOTE | 2018-06-02 11:56 | P.PN ---
Subjective Interval history: Follow-up syncope/sick sinus syndrome June 01, 2018-patient seen and examined, denies any shortness of breath, chest pain. No syncopal episodes since admission. However patient reports some dizziness when moving from sitting position to standing. Currently n.p.o. pending PPM placement June 02, 2018-patient seen and examined, denies any chest pain or shortness of breath. He is status post PPM placements. Looking forward to going home today. Physical Exam Vital signs: Vital Signs 06/01/18 12:00 06/01/18 13:13 06/01/18 13:30 Temperature 97.6 F Pulse Rate 93 H 75 68 Respiratory Rate 20 18 Blood Pressure 180/100 H 163/79 H 171/81 H Pulse Oximetry 97 98 98 06/01/18 13:45 06/01/18 13:58 06/01/18 15:58 Temperature Pulse Rate 71 65 70 Respiratory Rate 18 20 18 Blood Pressure 157/80 H 135/86 191/82 H Pulse Oximetry 96 95 94 L 06/01/18 16:00 06/01/18 17:00 06/01/18 18:00 Temperature Pulse Rate 70 86 80 Respiratory Rate 18 Blood Pressure 191/82 H Pulse Oximetry 94 L 06/01/18 18:36 06/01/18 19:00 06/01/18 20:00 Temperature 98.2 F Pulse Rate 82 82 87 Respiratory Rate 17 18 Blood Pressure 146/88 H 151/84 H Pulse Oximetry 95 96 06/01/18 21:00 06/01/18 22:00 06/01/18 23:00 Temperature Pulse Rate 85 83 87 Respiratory Rate Blood Pressure Pulse Oximetry 06/02/18 00:00 06/02/18 01:00 06/02/18 02:00 Temperature 98.2 F Pulse Rate 94 H 85 84 Respiratory Rate 18 Blood Pressure 148/80 H Pulse Oximetry 96 06/02/18 03:00 06/02/18 04:00 06/02/18 05:00 Temperature 98.3 F Pulse Rate 85 92 H 88 Respiratory Rate 18 Blood Pressure 144/86 H Pulse Oximetry 95 06/02/18 06:00 06/02/18 07:00 06/02/18 08:00 Temperature 98.0 F Pulse Rate 91 H 88 107 H Respiratory Rate 18 Blood Pressure 140/84 Pulse Oximetry 95 06/02/18 09:00 Temperature Pulse Rate 85 Respiratory Rate Blood Pressure Pulse Oximetry Intake & Output 06/01/18 06/02/18 06/02/18 18:59 06:59 18:59 Intake Total 990 / 990 994 / 994 Output Total 625 / 625 1000 / 1000 Balance 365 / 365 -6 / -6 Weight 93.5 kg Intake: IV 250 / 250 514 / 514 Vancomycin Inj 1,000 MG In NS 250 / 250 Inj 250 ML @ 250 mls/hr IV.SIG CUSTOMER ENERGY SPECIALIST ELENA Rx#:[id number] Vancomycin Inj 1,400 MG In NS 514 / 514 Inj 500 ML @ 250 mls/hr IV.SIG Q12H ELENA Rx#:[id number] Oral 240 / 240 480 / 480 Anesthesia Amount 500 / 500 Output: Urine 625 / 625 1000 / 1000 Other: Date of Last Bowel Movement 05/30/18 # Bowel Movements 0 Narrative: GENERAL: NAD SKIN: Warm and dry. HEAD: Normocephalic. EYES: No scleral icterus. No injection or drainage. NECK: Supple, trachea midline. No JVD or lymphadenopathy. CARDIOVASCULAR: Regular rate and rhythm without murmurs, gallops, or rubs. PPM placed in left anterior chest RESPIRATORY: Breath sounds equal bilaterally. No accessory muscle use. GASTROINTESTINAL: Abdomen soft, non-tender, nondistended. MUSCULOSKELETAL: No cyanosis, or edema. BACK: Nontender without obvious deformity. No CVA tenderness. Results - Labs CBC & Chem 7: 05/30/18 05:27 05/31/18 05:17 Laboratory Results - last 24 hr 06/01/18 06/01/18 06/02/18 13:21 20:13 07:56 POC Glucose 115 H 175 H 202 H 06/02/18 11:28 POC Glucose 252 H - Imaging Impressions Chest X-Ray 06/01/18 00:00 CONCLUSION: 1. There has been interval worsening of pulmonary infiltrates consistent with worsening pulmonary edema or pneumonia. Clinical correlation is recommended. 2. Cardiomegaly. 3. Left subclavian dual lead pacemaker has been placed and has its tips in right atrium and right ventricle. No pneumothorax is noted. - Procedures s/p PPM placement 06/01/18 Assessment and Plan - Assessment (1) Syncope Code(s): R55 - Syncope and collapse Status: Acute (2) Fall Code(s): W19.XXXA - Unspecified fall, initial encounter Status: Acute (3) DM (diabetes mellitus) Code(s): E11.9 - Type 2 diabetes mellitus without complications Status: Acute (4) Chest pain Code(s): R07.9 - Chest pain, unspecified Status: Acute - Plan 87-year-old man with Syncope Sick sinus syndrome s/p PPM placement 06/01/18 Management per cardiology Continue beta-russell CAD Plan for outpatient left heart catheterization, however patient is currently reluctant for it Management per cardiology HTN continue blood pressure control; DYSLIPIDEMIA continue statin NIDDM non-insulin- continue insulin sliding scale diabetic diet GERD continue omeprazole ALZHEIMER'S DEMENTIA early continued donezepil OBESITY BMI 32 outpatient follow-up when stable MILD PROTEIN CALORIE MALNUTRITION, albumin 2.8continue nutritional support DVT prophylaxis subcu Lovenox (1) Syncope Qualifiers: Syncope type: unspecified Qualified Code(s): R55 - Syncope and collapse
--- NOTE | 2018-06-02 11:57 | P.DS ---
Date of admission: 05/29/18 20:10 Primary care physician: Zenobia Todd MD Brief History from admission: CXR bibasilar patchiness consistent with atelectasis or infiltrates.This is an 87-year-old male with a PMH of HTN, CAD s/p CABG x6 and DM who was brought to the ER by EMS after syncopal event. Pt states he's been having c/o chest pain for approx 1mo, follows w/ Dr. Chaudhry, was seen in office on Friday and scheduled for Cath on 06/05/18. Notes ongoing episodes of chest pain, substernal, 5/10, non-radiating. Today, w/ c/o nausea/vomiting and "gas", states symptoms improved after vomiting. and daughter note decreased PO intake x1 month. Today, states he was walking back to the living room from the kitchen when she heard loud thud and found him on the floor. Pt denies dizziness/lightheadedness or chest pain prior to syncope. +facial trauma. On arrival, BP 160/77, HR 67, O2 sat 95% on RA, Afebrile. CBC unremarkable. INR 1.1. Chemistry unremarkable. Troponin negative. CT Head negative. CT Face no fractures. CT C-spine no acute fracture. Remains chest pain free at this time. DS: Diagnosis - Discharge Diagnosis (1) Syncope Status: Acute (2) Fall Status: Acute (3) DM (diabetes mellitus) Status: Acute (4) Chest pain Status: Acute DS: Medications - Discharge Medications Prescriptions: isosorbide mononitrate 60 mg PO DAILY@0700 #30 tab DS: Summary Hospital Course: Patient admitted and diagnosed with sick sinus syndrome for which cardiology was consulted and he underwent PPM placement June 01, 2018. He was continued postoperatively on his treatment for other chronic medical conditions. DVT and GI prophylaxis were provided. Prior to discharge, patient' s condition improved and vitals remained stable. He will follow outpatient with cardiology. - Time Spent with Patient Total time spent providing and/or coordinating discharge services: Less than 30 minutes - Quality: VTE Deep Vein Thrombosis/Pulmonary Embolism Present on Admission: No Exam Vital signs: Vital Signs 06/01/18 12:00 06/01/18 13:13 06/01/18 13:30 Temperature 97.6 F Pulse Rate 93 H 75 68 Respiratory Rate 20 18 Blood Pressure 180/100 H 163/79 H 171/81 H Pulse Oximetry 97 98 98 06/01/18 13:45 06/01/18 13:58 06/01/18 15:58 Temperature Pulse Rate 71 65 70 Respiratory Rate 18 20 18 Blood Pressure 157/80 H 135/86 191/82 H Pulse Oximetry 96 95 94 L 06/01/18 16:00 06/01/18 17:00 06/01/18 18:00 Temperature Pulse Rate 70 86 80 Respiratory Rate 18 Blood Pressure 191/82 H Pulse Oximetry 94 L 06/01/18 18:36 06/01/18 19:00 06/01/18 20:00 Temperature 98.2 F Pulse Rate 82 82 87 Respiratory Rate 17 18 Blood Pressure 146/88 H 151/84 H Pulse Oximetry 95 96 06/01/18 21:00 06/01/18 22:00 06/01/18 23:00 Temperature Pulse Rate 85 83 87 Respiratory Rate Blood Pressure Pulse Oximetry 06/02/18 00:00 06/02/18 01:00 06/02/18 02:00 Temperature 98.2 F Pulse Rate 94 H 85 84 Respiratory Rate 18 Blood Pressure 148/80 H Pulse Oximetry 96 06/02/18 03:00 06/02/18 04:00 06/02/18 05:00 Temperature 98.3 F Pulse Rate 85 92 H 88 Respiratory Rate 18 Blood Pressure 144/86 H Pulse Oximetry 95 06/02/18 06:00 06/02/18 07:00 06/02/18 08:00 Temperature 98.0 F Pulse Rate 91 H 88 107 H Respiratory Rate 18 Blood Pressure 140/84 Pulse Oximetry 95 06/02/18 09:00 Temperature Pulse Rate 85 Respiratory Rate Blood Pressure Pulse Oximetry Intake & Output 06/01/18 06/02/18 06/02/18 18:59 06:59 18:59 Intake Total 990 / 990 994 / 994 Output Total 625 / 625 1000 / 1000 Balance 365 / 365 -6 / -6 Weight 93.5 kg Intake: IV 250 / 250 514 / 514 Vancomycin Inj 1,000 MG In NS 250 / 250 Inj 250 ML @ 250 mls/hr IV.SIG [employer] ELENA Rx#:[id number] Vancomycin Inj 1,400 MG In NS 514 / 514 Inj 500 ML @ 250 mls/hr IV.SIG Q12H ELENA Rx#:[id number] Oral 240 / 240 480 / 480 Anesthesia Amount 500 / 500 Output: Urine 625 / 625 1000 / 1000 Other: Date of Last Bowel Movement 05/30/18 # Bowel Movements 0 Narrative: GENERAL: NAD SKIN: Warm and dry. HEAD: Normocephalic. EYES: No scleral icterus. No injection or drainage. NECK: Supple, trachea midline. No JVD or lymphadenopathy. CARDIOVASCULAR: Regular rate and rhythm without murmurs, gallops, or rubs. PPM placed in left anterior chest RESPIRATORY: Breath sounds equal bilaterally. No accessory muscle use. GASTROINTESTINAL: Abdomen soft, non-tender, nondistended. MUSCULOSKELETAL: No cyanosis, or edema. BACK: Nontender without obvious deformity. No CVA tenderness. Results Procedures completed during hospitalization: s/p PPM placement 06/01/18 Labs on day of discharge: Labs from last 24 hours 06/02/18 06/02/18 06/01/18 11:28 07:56 20:13 POC Glucose 252 H 202 H 175 H 06/01/18 13:21 POC Glucose 115 H - Impressions ITS Impressions Cervical Spine CT 05/29/18 18:09 CONCLUSION: 1. No acute fracture or subluxation of the cervical spine. 2. Degenerative changes as above. Face CT 05/29/18 18:09 CONCLUSION: 1. No acute facial bone fractures. Head CT 05/29/18 18:09 CONCLUSION: 1. No acute intracranial abnormality. . Chest X-Ray 06/01/18 00:00 CONCLUSION: 1. There has been interval worsening of pulmonary infiltrates consistent with worsening pulmonary edema or pneumonia. Clinical correlation is recommended. 2. Cardiomegaly. 3. Left subclavian dual lead pacemaker has been placed and has its tips in right atrium and right ventricle. No pneumothorax is noted. Discharge Plan - Discharge Disposition Patient Disposition: 01 Discharge Home - Discharge Condition Condition: Fair - Discharge Order Discharge Orders: Discharge Order (Routine); Ordered 06/02/18 Ordered By: Endy Keene - Physicians Team Primary Care Provider: Zenobia Todd Attending Provider: Endy Keene Other Providers: Con Rios DO ; [employer]
[2018-06-02 13:22] VITALS: BP 112/70; TEMP 98.5; O2SAT 94
[2018-06-02 13:59] VITALS: PULSE 76
== END 2018-06-02 14:00 | disposition home or self-care (01) ==
LOC: NEPE 17:36 → NEDA 17:36 → NEPFCDU 21:58 → HCIS 05-31 14:30
PROVIDERS: ADMIT Hospitalist; ATTEND Hospitalist
DX: Z95.5 Presence of coronary angioplasty implant and graft; Z79.899 Other long term (current) drug therapy; R11.2 Nausea with vomiting, unspecified; R55 Syncope and collapse; E11.9 Type 2 diabetes mellitus without complications; I10 Essential (primary) hypertension; S00.10XA Contusion of unspecified eyelid and periocular area, initial encounter; I25.119 Atherosclerotic heart disease of native coronary artery with unspecified angina pectoris; Z79.82 Long term (current) use of aspirin; I49.5 Sick sinus syndrome; E86.0 Dehydration; I44.0 Atrioventricular block, first degree; W19.XXXA Unspecified fall, initial encounter; Z95.1 Presence of aortocoronary bypass graft
CPT/HCPCS: 33208; 70450; 70486; 71010; 71045; 72125; 80048; 80053; 80061; 82948; 82962; 83520; 83735; 83880; 84484; 85025; 85610; 85730; 90761; 90765; 90766; 90775; 93005; 93306; 94150; 96361; 96365; 96366; 96372; 96375; 96376; 97163; 99285; C1779; C1785; G0378; G8987; G8988; J1650; J1815; J2001; J2370; J2405; J2704; J3010; J3370; J7030; J7040; J7050; Q9967